=== PATIENT | male | born 1965 | race African-American/Black ===

== ENCOUNTER 2019-10-28 00:58 | Outpatient (CLI) | payer BC, SELFPAY ==
[2019-10-28 18:13] LABS: SARS-CoV-2 RNA PCR Negative
== END 2019-10-28 00:59 | disposition home or self-care (01) ==
LOC: ANHCOVIDDT 00:59
PROVIDERS: PCP Family Medicine; Visit Provider Internal Medicine Gastroenterology
DX: Z01.812 Encounter for preprocedural laboratory examination (principal); Z20.828 Contact with and (suspected) exposure to other viral communicable diseases
CPT/HCPCS: 87635; C9803; U0003

== ENCOUNTER 2019-10-31 00:44 | Day surgery (SDC) | payer BC, SELFPAY ==
[2019-10-23 10:58] VITALS: BMI 31.9
[2019-10-31 07:47] VITALS: BP 135/88; PULSE 48; RESP 18; TEMP 36.4; O2SAT 97
[2019-10-31] MEDS: LACTATED RINGERS 1,000 ML 150 ML IV CONT (08:05)
--- NOTE | 2019-10-31 08:27 | WPDANESEPPF ---
Anes - Initial Pre Proc Eval Procedure: Operation Date: 10/31/19 08:30 Proposed Procedures p Colonoscopy - Surya Greene MD Date/Time: 10/31/19 08:27 Surgeon: Surya Greene MD Pre Op Diagnosis: colon polyp, diarrhea Patient Data Age: 54 Gender: M Height: 1.93 m Weight: 126.8 kg Last Vital Signs Temp 36.4 C L 10/31/19 07:47 Pulse 48 L 10/31/19 07:47 Resp 18 10/31/19 07:47 BP 135/88 10/31/19 07:47 Pulse Ox 97 10/31/19 07:47 Allergies Allergy/AdvReac Type Severity Reaction Status Date / Time cephalexin Allergy Unknown Unknown Verified 10/31/19 07:46 Wtcqalz-Jzq-Ddz Reductase Allergy Unknown Unknown Verified 10/31/19 07:46 Inhibitor Home Medications Medication Instructions Recorded Confirmed Type omeprazole 20 mg tablet,delayed 20 mg PO DAILY #30 tablet 02/07/19 10/31/19 Rx release lisinopril 20 mg PO DAILY 02/16/19 10/31/19 History metoprolol succinate 200 mg PO BID 02/16/19 10/31/19 History Patient hx anesthesia problems: none Family hx anesthesia problems: none PMFSH Past Medical History Medical History (Updated 06/12/19 @ 11:10 by Surya Greene MD) Abnormal heart rhythms Adenomatous colon polyp Bleeding tendency COVID-19 virus infection Diarrhea Heart murmur Helicobacter positive gastritis Hypertension Mitral insufficiency Ulcers, marginal Surgical History Surgical History (System 06/06/19 @ 08:57 by Nicki Gar) Hx of tonsillectomy S/P MVR (mitral valve repair) Social History Social History (System 06/06/19 @ 08:57 by Nicki Gar) Years smoked: 6 Smoking status: Former smoker Tobacco type: cigarettes Alcohol intake: current Drinks per week: 1 Substance use type: does not use Living arrangements: alone Gender identity (if verbalized by the patient): Male Spiritual care concerns: No Anes - Eval Final PreProcedure Day of Procedure 10/31/19 08:27 Patient weight: obese Heart: regular rate and rhythm Lungs: clear to auscultation and normal air movement Airway: Mallampati scale class II Neurological: alert and oriented Last oral intake: >/= 8 hours ASA classification: III Emergent: no Anesthetic plan: proceed Anesthesia type and monitoring: general GIVS Informed Consent: The patient's anesthetic plan and its attendant risks and benefits were discussed with the patient/family/POA. Questions were solicited and answers provided to the satisfaction of the patient/family/POA.
--- NOTE | 2019-10-31 08:46 | PM.HPGS ---
History of Present Illness History of Present Illness Consent: Risks, benefits, and alternatives have been discussed and questions answered. Patient agrees to proceed with procedure. Chief complaint: colon polyp, diarrhea Narrative: Benjie Chavez is a 54 year old male large polyp removed about 6 months ago by piecemeal Review of Systems Constitutional: Constitutional: Denies headache(s) and Denies weakness Eyes: Eyes: Denies blurry vision ENT: Reports Normal hearing present, Denies headache(s) and Denies neck pain Cardiovascular: Cardiovascular: Denies chest pain and Denies dyspnea Respiratory: Respiratory: Denies dyspnea Gastrointestinal: Gastrointestinal: Reports no additional gastrointestinal complaints Genitourinary: Genitourinary: Denies dysuria Musculoskeletal: Musculoskeletal: Denies neck pain Integumentary/Breasts: Skin/Breast: Denies dry skin Neurologic: Reports Normal hearing present, Denies headache(s) and Denies weakness Psychiatric: Psychiatric: Denies anxiety Endocrine: Endocrine: Denies change in body appearance Hematologic/Lymphatic: Hematologic/Lymphatic: Denies easy bleeding Allergic/Immunologic: Allergic/Immunologic: Denies urticaria PMFSH Past Medical History Medical History (Updated 06/12/19 @ 11:10 by Surya Greene MD) Abnormal heart rhythms Adenomatous colon polyp Bleeding tendency COVID-19 virus infection Diarrhea Heart murmur Helicobacter positive gastritis Hypertension Mitral insufficiency Ulcers, marginal Surgical History Surgical History (System 06/06/19 @ 08:57 by Nicki Gar) Hx of tonsillectomy S/P MVR (mitral valve repair) Social History Social History (System 06/06/19 @ 08:57 by Nicki Gar) Years smoked: 6 Smoking status: Former smoker Tobacco type: cigarettes Alcohol intake: current Drinks per week: 1 Substance use type: does not use Living arrangements: alone Gender identity (if verbalized by the patient): Male Spiritual care concerns: No Meds Home Medications and Allergies Home Medications Medication Instructions Recorded Confirmed Type omeprazole 20 mg tablet,delayed 20 mg PO DAILY #30 tablet 02/07/19 10/31/19 Rx release lisinopril 20 mg PO DAILY 02/16/19 10/31/19 History metoprolol succinate 200 mg PO BID 02/16/19 10/31/19 History Allergies Allergy/AdvReac Type Severity Reaction Status Date / Time cephalexin Allergy Unknown Unknown Verified 10/31/19 07:46 Buuwrhk-Juo-Eqh Reductase Allergy Unknown Unknown Verified 10/31/19 07:46 Inhibitor Vital Signs Vital Signs - 24 hr 10/31/19 07:47 Temperature 97.5 F L Pulse Rate 48 L Respiratory Rate 18 Blood Pressure 135/88 Pulse Oximetry 97 Exam Const: General: comfortable and no acute distress HENMT: General nose exam: Normal nares present Eyes: General: appearance normal, both eyes and all related structures Neck: Neck: no JVD Resp: Auscultation: clear to auscultation bilaterally Cardio: Rate: regular rate Rhythm: regular rhythm GI: Inspection: non-distended GI Palp: Yes Soft to palpation Skin: General skin exam: normal color Neuro: General: gait normal Speech: normal speech Extrem: General: normal to inspection Psych: Mental Status: mental status grossly normal Assessment and Plan Assessment and plan (1) Adenomatous colon polyp: Qualifiers: Colon location: unspecified part of colon Qualified Code(s): D12.6 - Benign neoplasm of colon, unspecified Code(s): D12.6 - Benign neoplasm of colon, unspecified Status: Acute Assessment and Plan: will proceed with colonoscopy
[2019-10-31 09:19] VITALS: BP 109/67; PULSE 46; RESP 16; O2SAT 99
[2019-10-31 09:29] VITALS: BP 106/72; PULSE 45; RESP 14; O2SAT 100
[2019-10-31 09:39] VITALS: BP 112/74; PULSE 45; RESP 16; O2SAT 100
[2019-10-31 09:49] VITALS: BP 123/78; PULSE 42; RESP 16; O2SAT 98
== END 2019-10-31 09:59 | disposition home or self-care (01) ==
PROVIDERS: PCP Family Medicine; Visit Provider Internal Medicine Gastroenterology
PROC: 0DJD8ZZ Inspection of Lower Intestinal Tract, Via Natural or Artificial Opening Endoscopic (ICD-10-PCS; CPT 45378; principal; 2019-10-31 08:30)
DX: D12.2 Benign neoplasm of ascending colon (principal); I10 Essential (primary) hypertension; E66.9 Obesity, unspecified; Z68.34 Body mass index [BMI] 34.0-34.9, adult; Z86.19 Personal history of other infectious and parasitic diseases; Z87.891 Personal history of nicotine dependence; Z79.899 Other long term (current) drug therapy
CPT/HCPCS: 45380; 88305; J2704; J7120

== ENCOUNTER 2020-05-28 15:31 | Outpatient (CLI) | payer BC, SELFPAY ==
--- NOTE | ~2020-05-28 | XR_ITS ---
EXAMINATION:XR_[id number]_CR DATE: 05/28/2020 15:48 INDICATION: Cervicalgia, chronic neck pain TECHNIQUE: AP, lateral, and odontoid views of the cervical spine are provided. COMPARISON: 12/27/2008 FINDINGS: Alignment is normal. The odontoid is intact. No fracture is identified. There is mild loss of intervertebral disc space height throughout the cervical spine. The vertebral body heights are nor mal. Prevertebral soft tissues are normal. The odontoid is intact. Degenerative osteophytes project f rom the anterior endplates of multiple vertebral bodies. There is oncr-yb-smcftyiu multilevel facet a nd uncovertebral joint osteoarthritis. IMPRESSION: 1. Moderate cervical spondylosis without acute findings or significant interval change. Reviewed, dictated and finalized at location A.
== END 2020-05-28 15:32 | disposition home or self-care (01) ==
PROVIDERS: PCP Family Medicine; Visit Provider Physician Assistant Medical
DX: M47.892 Other spondylosis, cervical region (principal)
CPT/HCPCS: 72040

== ENCOUNTER 2021-04-07 18:26 | Observation (INO) | payer BC, SELFPAY ==
[2021-04-07] VITALS (20 sets, daily range): BP systolic 130–183; BP diastolic 74–143; PULSE 46–54; RESP 16–22; TEMP 36.4; O2SAT 97–100; BMI 35.8
--- NOTE | ~2021-04-07 | XR_ITS ---
EXAMINATION: XR chest 2V DATE: 04/07/2021 18:52 INDICATION: Left-sided chest pain TECHNIQUE: PA and lateral views of the chest were obtained. COMPARISON: Chest radiograph dated 05/10/2018 FINDINGS: The lungs are clear with no focal airspace opacities, pulmonary edema, pleural effusion or pneumothor ax. The cardiomediastinal silhouette is normal. Mitral valve repair. Unfused C7 spinous process. IMPRESSION: 1. No acute cardiopulmonary disease. Reviewed, dictated and finalized at location A. [employer]
--- NOTE | 2021-04-07 18:36 | ECG_ITS ---
Measurements Intervals [place] Rate: 49 P: 30 MD: 207 QRS: 11 QRSD: 127 T: 38 QT: 436 QTc: 394 Interpretive Statements SINUS BRADYCARDIA WITH FIRST DEGREE AV BLOCK INCOMPLETE RIGHT BUNDLE BRANCH BLOCK ABNORMAL ECG Electronically Signed On 04-08-2021 7:30:51 [employer] by Naresh Bellamy D.O.
--- NOTE | 2021-04-07 18:48 | ED.CHESTPAIN ---
HPI - Chest Pain General Chief Complaint: Chest Pain Stated Complaint: chest pain Time Seen by Provider: 04/07/21 18:47 Source: patient Mode of arrival: ambulatory Limitations: no limitations History of Present Illness HPI narrative: Patient is a 56-year-old male complaining of chest pain, left chest, tightness, 6 out of 10, nonradiating, intermittent started today. Patient denies any shortness breath, abdominal pain, diaphoresis, nausea, vomiting, fever or chills. Related Data Home Medications Medication Instructions Recorded Confirmed lisinopril 20 mg PO DAILY 02/16/19 06/17/20 metoprolol succinate 200 mg PO BID 02/16/19 06/17/20 hydrochlorothiazide 25 mg DAILY 04/07/21 omeprazole 20 mg DAILY 04/07/21 Allergies Allergy/AdvReac Type Severity Reaction Status Date / Time cephalexin Allergy Unknown Unknown Verified 06/17/20 09:31 Nbxsggy-ZPE-TxD Reductase Allergy Unknown Unknown Verified 06/17/20 09:31 Inhibitor [Cnkgvjd-Gxj-Pww Reductase Inhibitor] Sulfa (Sulfonamide Allergy Rash Verified 04/07/21 18:57 Antibiotics) Review of Systems Review of Systems: All systems reviewed & are unremarkable except as noted in HPI and below Constitutional: Constitutional: Denies body ache(s), Denies chills, Denies excessive sweating, Denies fatigue, Denies fever(s), Denies headache(s), Denies lethargy, Denies malaise, Denies weakness and Denies weight loss Eyes: Eyes: Denies blurry vision, Denies change in vision and Denies loss of vision ENT: Denies dizziness, Denies ear discharge, Denies headache(s), Denies lip swelling, Denies epistaxis, Denies nasal congestion, Denies neck pain, Denies throat swelling and Denies tongue swelling Cardiovascular: Cardiovascular: Denies diaphoresis, Denies rapid heart rate, Denies edema, Denies irregular heart rhythm, Denies lightheadedness, Denies palpitations, Denies dyspnea and Denies dyspnea on exertion Respiratory: Respiratory: Denies chest congestion, Denies cough, Denies hemoptysis, Denies dyspnea and Denies dyspnea on exertion Gastrointestinal: Gastrointestinal: Denies abdominal pain, Denies melena, Denies hematochezia, Denies diarrhea, Denies nausea, Denies vomiting and Denies hematemesis Musculoskeletal: Musculoskeletal: Denies abnormal gait, Denies deformity, Denies joint swelling, Denies limited range of motion, Denies neck pain and Denies numbness Neurologic: Denies Abnormal speech present, Denies abnormal gait, Denies confusion, Denies dizziness, Denies headache(s), Denies focal weakness, Denies loss of vision, Denies numbness, Denies Other visual disturbances, Denies Sensory deficit (Neuro) and Denies weakness Psychiatric: Psychiatric: Denies confusion, Denies depression, Denies auditory hallucinations, Denies homicidal ideation and Denies suicidal ideation Endocrine: Endocrine: Denies cold intolerance, Denies excessive sweating, Denies fatigue, Denies heat intolerance and Denies palpitations Hematologic/Lymphatic: Hematologic/Lymphatic: Denies easy bleeding and Denies easy bruising Allergic/Immunologic: Allergic/Immunologic: Denies lip swelling, Denies throat swelling and Denies tongue swelling PMFSH Past Medical History Medical History Abnormal heart rhythms Adenomatous colon polyp Bleeding tendency BMI 33.0-33.9,adult BMI 34.0-34.9,adult COVID-19 virus infection Diarrhea Heart murmur Helicobacter positive gastritis Hypertension Mitral insufficiency Ulcers, marginal Surgical History Surgical History Hx of tonsillectomy S/P MVR (mitral valve repair) Family History Family History Father Malignant neoplasm of prostate Mother Heart disease Liver disease Other Diabetes mellitus Family history of coronary artery disease Hypertension Social History Social H
[2021-04-07 18:56] LABS: Basophils Percent Auto 0.7 % (0.2-1.2); Eosinophils Absolute Auto 0.3 K/mm3 (0-0.3); Eosinophils Percent Auto 4.6 % (0-4.4); Hematocrit 45.9 % (42.0-52.0); Hemoglobin 15.3 g/dL (14.0-18.0); Immature Granulocyte Absolute 0.01 K/mm3 (0.00-0.031); Immature Granulocyte Percent A 0.2 % (0-0.5); Immature Platelet Fraction Pct 3.5 % (0.9-11.2); Lymphocytes Absolute Auto 2.57 K/mm3 (0.9-3.2); Lymphocytes Percent Auto 41.9 % (18.3-44.2); Mean Corpuscular HGB Conc 33.3 g/dl (32-36); Mean Corpuscular Hemoglobin 30.7 pg (26-34); Monocytes Absolute Auto 0.5 K/mm3 (0.1-0.6); Monocytes Percent Auto 7.5 % (2.6-8.5); Neutrophils Absolute Auto 2.8 K/mm3 (1.3-6.7); Neutrophils Percent Auto 45.1 % (45.5-73.1); Platelet Count Result 149 k/mm3 (150-375); Red Blood Count 4.99 M/mm3 (4.6-6.20); Red Cell Distribution Width 13.5 % (11.5-14.5); White Blood Count 6.1 K/mm3 (4.5-10.0)
[2021-04-07 19:01] LABS: Prothrombin Time 12.7 Seconds (11.1-14.7)
[2021-04-07 19:02] LABS: Partial Thromboplastin Time 28.8 SECONDS (22.3-36.8)
[2021-04-07] MEDS: ASPIRIN 81 MG CHEWABLE TABLET 324 MG PO (19:08)
[2021-04-07 19:14] LABS: Alanine Aminotransferase 25 U/L (4-50); Albumin Level 4.2 g/dL (3.5-5.1); Alkaline Phosphatase 50 U/L (38-126); Anion Gap 5 mmol/L (8-16); Aspartate Amino Transferase 25 U/L (17-59); Bilirubin,Total 0.5 mg/dL (0.2-1.3); Blood Urea Nitrogen 13 mg/dL (9-20); Calcium 8.8 mg/dL (8.4-10.2); Carbon Dioxide 26 mmol/L (22-30); Chloride 103 mmol/L (98-107); Estimated CRCL calculation 83 ml/min; Estimated Glomerular Filt Rate > 60; Glucose 115 mg/dL (65-110); Lipase 187 U/L (23-300); Potassium 3.6 mmol/L (3.4-5.0); Sodium 134 mmol/L (137-145)
[2021-04-07 19:26] LABS: Troponin I < 0.012 ng/mL (0.000-0.034)
[2021-04-07 22:02] LABS: Troponin I < 0.012 ng/mL (0.000-0.034)
[2021-04-08] VITALS: BP 113/68; PULSE 46; RESP 20; TEMP 36.2; O2SAT 96
--- NOTE | 2021-04-08 00:31 | ADMGEN ---
This patient, Benjie Chavez, was admitted to [facility] 04/07/2021 @2300. Patient/family oriented to hospital policies and general routines including ID bracelet, bed and alarms, visiting hours, pain management, procedures, bathroom and other care routines, personal items, smoking policy, room service/diet, and visiting hours. Information on how to activate the Rapid Response Team has been discussed. Patient/Family are encouraged to report perceived risks to care and to ask questions if they do not understand what they are told or what they should do.
--- NOTE | 2021-04-08 01:06 | PM.IMHP ---
H&P: HPI History of Present Illness Date/Time: 04/07/21 23:30 Chief Complaint: Chest pain Narrative: Pleasant 56-year-old male with past medical history of cardiomyopathy with systolic heart failure EF of 30%, mitral valve regurgitation status post valve repair in 2016 who presented to the ER with chest pain. He reported that he was getting ready for work when he started having left-sided chest pain that radiated down into the substernal region. Pain was a 6/10 in intensity and was described as tight in nature. The pain only lasted a few minutes before resolved. 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 That time the chest pain lasted between 5-20 minutes. He did not have any eliciting or relieving factors. He did not have any palpitations, diaphoresis, nausea or lightheadedness. He had his nursing district supervisor evaluate him and they recommended he come to the ER. He does report chronic shortness of breath with vigorous activity due to his chronic nonischemic cardiomyopathy. He occasionally has some trace edema of his ankles but does not note this at this time. He denies any orthopnea or paroxysmal nocturnal dyspnea. 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 He does snore. He had a sleep study over 10 years ago that did not demonstrate any sleep apnea but has not had any recent evaluation. He has not had any cough or congestion. He has an appointment with his needle loom operator at [facility] in 2 days. Review of Systems Review of Systems: 12 systems were reviewed with pertinent positives and negatives per HPI. Except as documented in the HPI, all other systems were reviewed and are negative. [facility] Past Medical History Medical History (Updated 04/08/21 @ 01:10 by Traci Hinson DO) Abnormal heart rhythms Adenomatous colon polyp Bleeding tendency BMI 34.0-34.9,adult Cataracts, bilateral COVID-19 virus infection Diarrhea Heart murmur Helicobacter positive gastritis Hypertension Mitral insufficiency Ulcers, marginal (~2019) Surgical History Surgical History (Updated 04/08/21 @ 01:51 by Traci Hinson DO) Hx of tonsillectomy At 30 years old S/P MVR (mitral valve repair) Family History Family History (Updated 04/08/21 @ 01:53 by Traci Hinson DO) Father , At 80 years old Malignant neoplasm of prostate Hypertension Mother Heart disease Liver disease Diabetes mellitus Hypertension Social History Social History (Updated 04/08/21 @ 01:54 by Traci Hinson DO) Social History: 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 He drinks 2-3 alcoholic beverages a week. He denies any illicit substance use. He briefly smoked many years ago. Years smoked: 6 Smoking status: Former smoker Tobacco type: cigarettes Second hand tobacco smoke exposure: Yes Alcohol intake: current Drinks per week: 3 Substance use: never Substance use type: does not use Gender identity (if verbalized by the patient): Male Spiritual care concerns: No Meds Home Medications and Allergies Home Medications Medication Instructions Recorded Confirmed Type lisinopril 20 mg PO DAILY 02/16/19 04/08/21 History metoprolol succinate 100 mg PO BID 02/16/19 04/08/21 History meloxicam 15 mg tablet 15 mg PO DAILY #30 tablet 10/16/20 04/08/21 Rx hydrochlorothiazide 25 mg DAILY 04/07/21 04/08/21 History omeprazole 20 mg DAILY 04/07/21 04/08/21 History ezetimibe 10 mg PO DAILY 04/08/21 04/08/21 History Allergies Allergy/AdvReac Type Severity Reaction Status Date / Time cephalexin Allergy Unknown Unknown Verified 06/17/20 09:31 Iiiwhox-GNT-QqM Reductase Allergy Unknown Unknown Verified 06/17/20 09:31 Inhibitor [Oxmmzod-Vux-Lxb Reductase Inhibitor] Sulfa (Sulfonamide Allergy Rash Verified 04/07/21 18:57 Antibiotics)
[2021-04-08 01:38] LABS: Troponin I < 0.012 ng/mL (0.000-0.034)
[2021-04-08 02:00] VITALS: PULSE 54
[2021-04-08 04:00] VITALS: BP 112/60; PULSE 52; RESP 17; TEMP 36.7; O2SAT 96
[2021-04-08 06:00] VITALS: PULSE 55
[2021-04-08 08:00] VITALS: BP 137/87; PULSE 51; RESP 17; TEMP 36.4; O2SAT 95
[2021-04-08] MEDS: MELOXICAM 7.5 MG TABLET 15 MG PO (09:27)
[2021-04-08] MEDS: PANTOPRAZOLE 40 MG TABLET PO (09:27)
[2021-04-08] MEDS: EZETIMIBE 10 MG TABLET PO (09:27)
[2021-04-08] MEDS: hydroCHLOROthiazide 25 MG TABLET PO (09:28)
[2021-04-08] MEDS: lisinopriL 20 MG TABLET PO (09:28)
[2021-04-08 10:00] VITALS: PULSE 57
--- NOTE | 2021-04-08 11:33 | PM.CNCAR ---
Assessment and Plan Assessment and plan (1) Chest pain: Qualifiers: Chest pain type: unspecified Qualified Code(s): R07.9 - Chest pain, unspecified Code(s): R07.9 - Chest pain, unspecified Status: Acute Assessment and Plan: Atypical, intermittent, self-resolving chest pain ruled out for myocardial infarction with negative serial cardiac enzymes. EKG without acute ischemic changes. History of normal coronary anatomy by left heart catheterization 02/15/2017 at [facility]. Very unlikely patient has developed severe obstructive CAD as contribution to atypical chest pain symptoms. No clinical evidence of acute pericarditis is contribution. BP control, patient is not in decompensated heart failure. Symptoms most likely musculoskeletal as they occurred while picking up a heavy television sharp in nature lasting several minutes at a time. I do not feel noninvasive ischemic evaluation is warranted at this time. Furthermore, he will follow-up with Dr. Hammond (Cardiology) at [facility] tomorrow and has been advised to keep this appointment. He agrees. No changes medical therapy at this time. However, given his resting bradycardia despite holding beta-jaiden last night and this morning and discussed the down titration as tolerated but will defer to his primary outpatient scheduler. Patient stable for discharge home follow up as an outpatient. Disposition per hospitalist service. Patient given the opportunity to ask any and all questions which were answered to his satisfaction. Patient agrees with plan of care. (2) Essential (primary) hypertension: Code(s): I10 - Essential (primary) hypertension Status: Acute Assessment and Plan: BP reasonably controlled. Continue home cardiovascular medical therapy. Continue lisinopril, hydrochlorothiazide, and metoprolol succinate. (3) History of cardiomyopathy: Code(s): Z86.79 - Personal history of other diseases of the circulatory system Status: Acute Assessment and Plan: EF 65-70% by most recent echocardiogram 05/2020. Patient is not in decompensated heart failure, NYHA class I-II sxs. (4) Mixed hyperlipidemia: Code(s): E78.2 - Mixed hyperlipidemia Status: Acute Assessment and Plan: Intolerant to statins. Continue Zetia. (5) Status post mitral valve annuloplasty: Code(s): Z98.890 - Other specified postprocedural states Status: Acute Assessment and Plan: Prophylactic antibiotics. Exam is not suggestive significant dysfunction. Patient has appointment with his normal outpatient scheduler tomorrow and will keep this scheduled appointment. He is not currently taking aspirin. History of Present Illness History of Present Illness Consult date/time: Date of service: 04/08/21 11:33 Cardiology consultation at the request of Dr. Moraes for our opinion regarding chest pain. Requesting physician: Beatriz Moraes MD Consult reason: chest pain Reason For Visit: Chest Pain, Sinus Bradycardia Narrative: Patient is a very pleasant 56-year-old male with past medical history significant for nonischemic cardiomyopathy with normal coronary anatomy by left heart catheterization 02/15/2017 and was a [facility], status post mitral valve annuloplasty ring, normalized LV systolic function EF 65-70% by echocardiogram 05/2020, hypertension with moderate LVH, mixed dyslipidemia intolerant to statin therapy who was in his usual state of health when he states he was with his mother with a heavy television when he developed sharp left-sided chest pain without radiation or other associated symptoms. He denies nausea, shortness of breath, diaphoresis, palpitations, near-syncope or syncope. Symptoms would persist for 3-5 minutes then resolved and recurred 2 or 3 times. 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 He presented to the ER here at [facility]. He has been
--- NOTE | 2021-04-08 12:11 | PM.DS ---
DS: Admitting Diagnosis Discharge Date 04/08/2021 Admitting Diagnosis chest pain DS: Discharge Diagnosis Discharge Diagnosis (1) Chest pain: Qualifiers: Chest pain type: unspecified Qualified Code(s): R07.9 - Chest pain, unspecified Code(s): R07.9 - Chest pain, unspecified Status: Acute (2) Bradycardia, sinus: Code(s): R00.1 - Bradycardia, unspecified Status: Acute (3) S/P MVR (mitral valve repair): Code(s): Z98.890 - Other specified postprocedural states Status: Acute DS: Summary Hospital Course Reason for hospitalization: Chief Complaint: Chest pain Narrative: Pleasant 56-year-old male with past medical history of cardiomyopathy with systolic heart failure EF of 30%, mitral valve regurgitation status post valve repair in 2016 who presented to the ER with chest pain. He reported that he was getting ready for work when he started having left-sided chest pain that radiated down into the substernal region. Pain was a 6/10 in intensity and was described as tight in nature. The pain only lasted a few minutes before resolved. 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 That time the chest pain lasted between 5-20 minutes. He did not have any eliciting or relieving factors. He did not have any palpitations, diaphoresis, nausea or lightheadedness. He had his nursing research greenhouse supervisor evaluate him and they recommended he come to the ER. He does report chronic shortness of breath with vigorous activity due to his chronic nonischemic cardiomyopathy. He occasionally has some trace edema of his ankles but does not note this at this time. He denies any orthopnea or paroxysmal nocturnal dyspnea. 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 He does snore. He had a sleep study over 10 years ago that did not demonstrate any sleep apnea but has not had any recent evaluation. He has not had any cough or congestion. Hospital Course: Patient presented with a complaint of chest pain, 3 sets of cardiac enzymes are negative myocardial infarction is ruled out, though no acute changes on EKG, seen by climate change analyst does not suspect acute coronary syndrome, patient has a appointment with his regular climate change analyst in 2 days will discharge the patient today. Status at Discharge Functional status at discharge: independent ambulation Overall status at discharge: patient is back to baseline Time Spent with Patient Time attestation: Total time spent providing and/or coordinating discharge services: Time spent: Greater than 30 minutes Exam Narrative: Patient is comfortable, NAD HEENT: eyes are clear and none icteric LUNGS:CTA HEART: RR S1S2 ABD: BS+, Soft and nontender Lower extremities: no edema SKIN: nonjaundiced Neuro: grossly intact. DS: Data Data Completed and Pending Labs on day of discharge: Labs from last 24 hours 04/08/21 04/07/21 04/07/21 00:29 21:28 18:45 WBC RBC Hgb Hct MCV MCH MCHC RDW Plt Count MPV Immature Gran % (Auto) Neut % (Auto) Lymph % (Auto) [place] % (Auto) Eos % (Auto) Baso % (Auto) Lymph # (Auto) [place] # (Auto) Eos # (Auto) Baso # (Auto) Abs Immat Gran (auto) Absolute Neuts (auto) Absolute Nucleated RBC Nucleated RBC % % Immature Plt Fraction PT INR APTT Sodium 134 L Potassium 3.6 Chloride 103 Carbon Dioxide 26 Anion Gap 5 L BUN 13 Creatinine 1.30 Estim Creat Clear Calc 83 Estimated GFR > 60 Glucose 115 H Calcium 8.8 Total Bilirubin 0.5 AST 25 ALT 25 Alkaline Phosphatase 50 Troponin I < 0.012 < 0.012 < 0.012 Total Protein 7.0 Albumin 4.2 Lipase 187 04/07/21 04/07/21 18:45 18:45 WBC 6.1 RBC 4.99 Hgb 15.3 Hct 45.9 MCV 92.0 MCH 30.7 MCHC 33.3 RDW 13.5 Plt Count 149 L MPV 10.0 Immature Gran % (
== END 2021-04-08 13:24 | disposition home or self-care (01) ==
LOC: ANHED 20:43 → ANHCPC 04-08 12:11
PROVIDERS: Emergency Medicine; Admitting Provider Internal Medicine; Emergency Provider Emergency Medicine; PCP Family Medicine; Visit Provider Family Medicine
DX: R07.89 Other chest pain (principal); I11.0 Hypertensive heart disease with heart failure; I50.20 Unspecified systolic (congestive) heart failure; I42.8 Other cardiomyopathies; R00.1 Bradycardia, unspecified; R06.83 Snoring; R06.02 Shortness of breath; E78.2 Mixed hyperlipidemia; Z87.891 Personal history of nicotine dependence; Z95.4 Presence of other heart-valve replacement
CPT/HCPCS: 36415; 71046; 80053; 83690; 84484; 85025; 85055; 85610; 85730; 93005; 99285; A9270; G0378

== ENCOUNTER 2021-09-16 11:45 | Outpatient (CLI) | payer BC, SELFPAY ==
[2021-09-16 12:37] LABS: Hematocrit 44.8 % (42.0-52.0); Hemoglobin 14.5 g/dL (14.0-18.0); Immature Platelet Fraction Pct 3.6 % (0.9-11.2); Mean Corpuscular HGB Conc 32.4 g/dl (32-36); Mean Corpuscular Volume 92.6 fl (80-100); Mean Platelet Volume 9.6 fl (7.4-10.4); Platelet Count Result 161 k/mm3 (150-375); Red Blood Count 4.84 M/mm3 (4.6-6.20); Red Cell Distribution Width 13.7 % (11.5-14.5); White Blood Count 5.8 K/mm3 (4.5-10.0)
[2021-09-16 12:50] LABS: Alanine Aminotransferase 29 U/L (6-50); Albumin Level 4.4 g/dL (3.5-5.1); Alkaline Phosphatase 49 U/L (38-126); Anion Gap 6 mmol/L (8-16); Aspartate Amino Transferase 23 U/L (17-59); Bilirubin,Total 0.4 mg/dL (0.2-1.3); Blood Urea Nitrogen 13 mg/dL (9-20); Calcium 9.2 mg/dL (8.4-10.2); Carbon Dioxide 33 mmol/L (22-30); Chloride 100 mmol/L (98-107); Estimated Glomerular Filt Rate > 60; Glucose 78 mg/dL (65-110); Potassium 3.6 mmol/L (3.4-5.0); Sodium 139 mmol/L (137-145)
[2021-09-16 13:19] LABS: Prostate Specific Antigen 0.8 ng/mL (< OR = 4.0)
== END 2021-09-16 11:46 | disposition home or self-care (01) ==
LOC: ANHLAB 11:47
PROVIDERS: PCP Family Medicine; Visit Provider Nurse Practitioner Family
DX: E87.1 Hypo-osmolality and hyponatremia (principal); N28.9 Disorder of kidney and ureter, unspecified; I10 Essential (primary) hypertension; Z12.5 Encounter for screening for malignant neoplasm of prostate
CPT/HCPCS: 36415; 80053; 84153; 85027; 85055; G0103

== ENCOUNTER 2022-09-17 16:21 | Emergency (ER) | payer BC, SELFPAY ==
--- NOTE | ~2022-09-17 | XR_ITS ---
XR finger 2nd RT min 2V 09/17/2022 18:12 INDICATION: Right second finger pain after trauma PROCEDURE: 3 views right second finger COMPARISON: 03/27/2013 FINDINGS: Fracture, dislocation or subluxation is not identified. 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 The soft tissues appear within normal limits. No foreign bodies are identified. IMPRESSION: 1: NO ACUTE BONE OR JOINT ABNORMALITY IDENTIFIED. Reviewed, dictated and finalized at location A.
[2022-09-17 16:22] VITALS: BP 106/83; PULSE 55; RESP 18; TEMP 36.9; O2SAT 97
--- NOTE | 2022-09-17 18:02 | ED.SKABFB ---
HPI - Skin/Abscess/Foreign Bdy General Chief complaint: Skin/Abscess/Foreign Body Stated complaint: rash/finger lac Time Seen by Provider: 09/17/22 17:09 Source: patient Mode of arrival: ambulatory Limitations: no limitations History of Present Illness HPI narrative: This is a 57 year old male that presents to the ER for an injury to his right 2nd finger sustained just prior to arrival. Reports he accidentally closed his finger in a door. He reports swelling and pain in the area. Reports a laceration to the distal phalanx. Also reports he has had a rash on his left forearm over the last week. Reports it is itchy. Is wondering if it is maybe poison mary as he had a recent exposure. Denies fever, decreased ROM or numbness. Related Data Home Medications Medication Instructions Recorded Confirmed hydrochlorothiazide 25 mg tablet 25 mg DAILY 04/07/21 09/29/21 Allergies Allergy/AdvReac Type Severity Reaction Status Date / Time cephalexin Allergy Unknown Unknown Verified 07/06/22 09:57 Zvjfcci-OGD-UxR Reductase Allergy Unknown Unknown Verified 07/06/22 09:57 Inhibitor [Ambquvn-Jiw-Vyc Reductase Inhibitor] Sulfa (Sulfonamide Allergy Rash Verified 07/06/22 09:57 Antibiotics) Review of Systems Review of Systems: CONSTITUTIONAL: Denies fever, SKIN: Reports rash and itching. MUSCULOSKELETAL: Reports joint pain, and myalgia. NEUROLOGIC: Denies numbness, or weakness. All systems reviewed & are unremarkable except as noted in HPI and below PMFSH Past Medical History Medical History Abnormal heart rhythms Adenomatous colon polyp Bleeding tendency BMI 32.0-32.9,adult BMI 34.0-34.9,adult Cataracts, bilateral COVID-19 virus infection Diarrhea Heart murmur Helicobacter positive gastritis Hypertension Mitral insufficiency Ulcers, marginal (~2019) Surgical History Surgical History Hx of tonsillectomy At 30 years old S/P MVR (mitral valve repair) Family History Family History Father , At 80 years old Malignant neoplasm of prostate Hypertension Mother Heart disease Liver disease Diabetes mellitus Hypertension Social History Social History Social History: 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 He drinks 2-3 alcoholic beverages a week. He denies any illicit substance use. He briefly smoked many years ago. Years smoked: 6 Smoking status: Former smoker Tobacco type: cigarettes Second hand tobacco smoke exposure: Yes Alcohol intake: current Drinks per week: 3 Substance use: never Substance use type: does not use Living arrangements: alone Gender identity (if verbalized by the patient): Male Spiritual care concerns: No Exam Narrative: GENERAL: Well-appearing, well-nourished, and in no acute distress. HEAD: Normocephalic, atraumatic. EYES: EOMI. EXTREMITIES: Normal range of motion. No obvious deformity. 1cm linear superficial laceration to the right 2nd finger distal phalanx SKIN: Warm, dry. Scattered papules to the left forearm NEURO: No focal deficits. Alert and oriented x3. PSYCH: Normal mood and affect Course Course Emergency Course: Patient updated on workup and agrees with plan and can Vital Signs Vital signs: Vital Signs Temperature 98.4 F 09/17/22 16:22 Pulse Rate 55 L 09/17/22 16:22 Respiratory Rate 18 09/17/22 16:22 Blood Pressure 106/83 09/17/22 16:22 Pulse Oximetry 97 09/17/22 16:22 Oxygen Delivery Room Air 09/17/22 16:22 Temperature 98.4 F 09/17/22 16:22 Pulse Rate 55 L 09/17/22 16:22 Respiratory Rate 18 09/17/22 16:22 Blood Pressure 106/83 09/17/22 16:22 Pulse Oximetry 97 09/17/22 16:22 Oxygen Delivery Room Air
[2022-09-17] MEDS: TETANUS,DIPHTHERIA,AC PERTUSSIS ADULT (0.5 ML) BOOSTRIX IM (19:12)
[2022-09-17 19:19] VITALS: BP 112/68; PULSE 60; O2SAT 99
== END 2022-09-17 19:19 | disposition home or self-care (01) ==
PROVIDERS: Emergency Provider Physician Assistant; PCP Family Medicine
DX: S67.190A Crushing injury of right index finger, initial encounter (principal); S61.210A Laceration without foreign body of right index finger without damage to nail, initial encounter; R21 Rash and other nonspecific skin eruption; Z23 Encounter for immunization; I10 Essential (primary) hypertension; I34.0 Nonrheumatic mitral (valve) insufficiency; H26.9 Unspecified cataract; Z86.010 Personal history of colon polyps; Z86.16 Personal history of COVID-19; Z87.891 Personal history of nicotine dependence; W23.0XXA Caught, crushed, jammed, or pinched between moving objects, initial encounter
CPT/HCPCS: 12001; 73140; 90471; 90715; 99283

== ENCOUNTER 2022-11-03 09:07 | Outpatient (CLI) | payer BC, SELFPAY ==
[2022-11-03 10:21] LABS: Hematocrit 45.5 % (42.0-52.0); Hemoglobin 14.8 g/dL (14.0-18.0); Mean Corpuscular HGB Conc 32.5 g/dl (32-36); Mean Corpuscular Hemoglobin 29.7 pg (26-34); Mean Corpuscular Volume 91.4 fl (80-100); Mean Platelet Volume 9.8 fl (7.4-10.4); Platelet Count Result 150 k/mm3 (150-375); Red Blood Count 4.98 M/mm3 (4.6-6.20); Red Cell Distribution Width 13.8 % (11.5-14.5); White Blood Count 6.2 K/mm3 (4.5-10.0)
[2022-11-03 10:35] LABS: Alanine Aminotransferase 26 U/L (6-50); Albumin Level 4.5 g/dL (3.5-5.1); Alkaline Phosphatase 51 U/L (38-126); Anion Gap 6 mmol/L (8-16); Aspartate Amino Transferase 25 U/L (17-59); Bilirubin,Total 0.6 mg/dL (0.2-1.3); Blood Urea Nitrogen 14 mg/dL (9-20); Carbon Dioxide 31 mmol/L (22-30); Chloride 98 mmol/L (98-107); Cholesterol 190 mg/dL (0-200); Estimated Glomerular Filt Rate > 60; Glucose 111 mg/dL (65-110); HDL Direct 35 mg/dL; Potassium 3.9 mmol/L (3.4-5.0); Sodium 135 mmol/L (137-145); Triglycerides 274 mg/dL (<150)
[2022-11-03 10:46] LABS: LDL Cholesterol Direct 103 mg/dL
[2022-11-03 11:03] LABS: Prostate Specific Antigen 0.7 ng/mL (< OR = 4.0)
[2022-11-03 14:22] LABS: Hemoglobin A1C 5.8 % (<5.7)
== END 2022-11-03 09:08 | disposition home or self-care (01) ==
PROVIDERS: PCP Family Medicine; Visit Provider Nurse Practitioner Family
DX: E78.2 Mixed hyperlipidemia (principal); Z13.29 Encounter for screening for other suspected endocrine disorder; E34.9 Endocrine disorder, unspecified; Z12.5 Encounter for screening for malignant neoplasm of prostate; R73.09 Other abnormal glucose
CPT/HCPCS: 36415; 80053; 80061; 83036; 84153; 84443; 85027; G0103

== ENCOUNTER 2022-12-18 02:04 | Day surgery (SDC) | payer BC, SELFPAY ==
[2022-12-09 14:39] VITALS: BMI 34.9
[2022-12-18 13:09] VITALS: BP 119/65; PULSE 52; RESP 18; TEMP 35.8; O2SAT 99
[2022-12-18] MEDS: LACTATED RINGERS 1,000 ML 150 ML IV CONT (13:25)
--- NOTE | 2022-12-18 13:44 | WPDANESEPPF ---
Anes - Initial Pre Proc Eval Procedure: Operation Date: 12/18/22 13:45 Proposed Procedures p Colonoscopy - Surya Greene MD Date/Time: 12/18/22 13:44 Surgeon: Surya Greene MD Pre Op Diagnosis: hx colon polyps Patient Data Age: 57 Gender: M Height: 1.91 m Weight: 121.7 kg Last Vital Signs Temp 96.5 F L 12/18/22 13:09 Pulse 52 L 12/18/22 13:09 Resp 18 12/18/22 13:09 BP 119/65 12/18/22 13:09 Pulse Ox 99 12/18/22 13:09 O2 Del Method Room Air 12/18/22 13:09 Allergies Allergy/AdvReac Type Severity Reaction Status Date / Time cephalexin Allergy Unknown Unknown Verified 12/18/22 13:06 Netxjlx-LQV-DtW Reductase Allergy Unknown Unknown Verified 12/18/22 13:06 Inhibitor [Onnyglb-Man-Cax Reductase Inhibitor] Sulfa (Sulfonamide Allergy Rash Verified 12/18/22 13:06 Antibiotics) Home Medications Medication Instructions Recorded Confirmed Type hydrochlorothiazide 25 mg tablet 25 mg PO DAILY 04/07/21 12/18/22 History gabapentin 300 mg capsule 300 mg PO TID #270 caps 09/19/22 12/18/22 Rx ashwagandha extract 120 mg capsule 120 mg PO DAILY 11/03/22 12/18/22 History methocarbamol 500 mg tablet 500 mg PO TID PRN muscle spasm #60 11/03/22 12/18/22 Rx tabs omega-3 fatty acids 1,000 mg 1,000 mg PO DAILY 11/03/22 12/18/22 History capsule psyllium husk 0.52 gram capsule 0.52 g PO DAILY 11/03/22 12/18/22 History saffron extract 176.5 mg tablet 176.5 mg PO DAILY 11/03/22 12/18/22 History omeprazole 20 mg capsule,delayed See Rx Instructions .Route 11/11/22 12/18/22 Rx release .COMPLEX #90 caps amlodipine 5 mg tablet See Rx Instructions .Route 11/12/22 12/18/22 Rx .COMPLEX #90 tabs ezetimibe 10 mg tablet See Rx Instructions .Route 11/15/22 12/18/22 Rx .COMPLEX #90 tabs meloxicam 15 mg tablet 15 mg PO DAILY #30 tabs 11/15/22 12/18/22 Rx lisinopril 40 mg tablet 40 mg PO DAILY 12/09/22 12/18/22 History metoprolol succinate 200 mg 200 mg PO BID 12/09/22 12/18/22 History tablet,extended release 24 hr Patient hx anesthesia problems: none Family hx anesthesia problems: none Results Review: All pre-operative results and documents have been reviewed as part of the pre-operative evaluation. [facility] Past Medical History Medical History (Updated 11/03/22 @ 15:06 by JESSI Alvarez) Abnormal heart rhythms Adenomatous colon polyp Bleeding tendency BMI 32.0-32.9,adult BMI 34.0-34.9,adult Cataracts, bilateral Cervical myelopathy COVID COVID-19 virus infection Diarrhea Heart murmur Helicobacter positive gastritis Hypertension Mitral insufficiency Ulcers, marginal (~2019) Surgical History Surgical History Hx of tonsillectomy At 30 years old S/P MVR (mitral valve repair) Family History Family History Father , At 80 years old Malignant neoplasm of prostate Hypertension Mother Heart disease Liver disease Diabetes mellitus Hypertension Social History Social History Social History: 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 He drinks 2-3 alcoholic beverages a week. He denies any illicit substance use. He briefly smoked many years ago. Years smoked: 10 Smoking status: Former smoker Tobacco type: cigarettes Second hand tobacco smoke exposure: Yes Alcohol intake: current Drinks per week: 3 Substance use: never Substance use type: does not use Lack of Transportation: No Lack of Food: Sometimes True Current Housing: I Have Housing Concerned About Future Housing: No Difficulty Paying Gas/Electric Bills: No Difficulty Paying for Meds: No Currently Unemployed: No Education: Bachelor's Degree Difficulty w/ Childcare or Family Care: YES Living arrange
--- NOTE | 2022-12-18 13:50 | PM.HPGS ---
History of Present Illness History of Present Illness Consent: Risks, benefits, and alternatives have been discussed and questions answered. Patient agrees to proceed with procedure. Chief complaint: hx colon polyps Narrative: Benjie Chavez is a 57 year old male with colon polyps in 2019 Review of Systems Constitutional: Constitutional: Denies headache(s) and Denies weakness Eyes: Eyes: Denies blurry vision ENT: Reports Normal hearing present, Denies headache(s) and Denies neck pain Cardiovascular: Cardiovascular: Denies chest pain and Denies dyspnea Respiratory: Respiratory: Denies dyspnea Gastrointestinal: Gastrointestinal: Reports no additional gastrointestinal complaints Genitourinary: Genitourinary: Denies dysuria Musculoskeletal: Musculoskeletal: Denies neck pain Integumentary/Breasts: Skin/Breast: Denies dry skin Neurologic: Reports Normal hearing present, Denies headache(s) and Denies weakness Psychiatric: Psychiatric: Denies anxiety Endocrine: Endocrine: Denies change in body appearance Hematologic/Lymphatic: Hematologic/Lymphatic: Denies easy bleeding Allergic/Immunologic: Allergic/Immunologic: Denies urticaria PMF Past Medical History Medical History (Updated 11/03/22 @ 15:06 by SHARONA AlvarezP) Abnormal heart rhythms Adenomatous colon polyp Bleeding tendency BMI 32.0-32.9,adult BMI 34.0-34.9,adult Cataracts, bilateral Cervical myelopathy COVID COVID-19 virus infection Diarrhea Heart murmur Helicobacter positive gastritis Hypertension Mitral insufficiency Ulcers, marginal (~2019) Surgical History Surgical History Hx of tonsillectomy At 30 years old S/P MVR (mitral valve repair) Family History Family History Father , At 80 years old Malignant neoplasm of prostate Hypertension Mother Heart disease Liver disease Diabetes mellitus Hypertension Social History Social History Social History: 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 He drinks 2-3 alcoholic beverages a week. He denies any illicit substance use. He briefly smoked many years ago. Years smoked: 10 Smoking status: Former smoker Tobacco type: cigarettes Second hand tobacco smoke exposure: Yes Alcohol intake: current Drinks per week: 3 Substance use: never Substance use type: does not use Lack of Transportation: No Lack of Food: Sometimes True Current Housing: I Have Housing Concerned About Future Housing: No Difficulty Paying Gas/Electric Bills: No Difficulty Paying for Meds: No Currently Unemployed: No Education: Bachelor's Degree Difficulty w/ Childcare or Family Care: YES Living arrangements: with family Gender identity (if verbalized by the patient): Male Spiritual care concerns: No Meds Home Medications and Allergies Home Medications Medication Instructions Recorded Confirmed Type hydrochlorothiazide 25 mg tablet 25 mg PO DAILY 04/07/21 12/18/22 History gabapentin 300 mg capsule 300 mg PO TID #270 caps 09/19/22 12/18/22 Rx ashwagandha extract 120 mg capsule 120 mg PO DAILY 11/03/22 12/18/22 History methocarbamol 500 mg tablet 500 mg PO TID PRN muscle spasm #60 11/03/22 12/18/22 Rx tabs omega-3 fatty acids 1,000 mg 1,000 mg PO DAILY 11/03/22 12/18/22 History capsule psyllium husk 0.52 gram capsule 0.52 g PO DAILY 11/03/22 12/18/22 History saffron extract 176.5 mg tablet 176.5 mg PO DAILY 11/03/22 12/18/22 History omeprazole 20 mg capsule,delayed See Rx Instructions .Route 11/11/22 12/18/22 Rx release .COMPLEX #90 caps amlodipine 5 mg tablet See Rx Instructions .Route 11/12/22 12/18/22 Rx .COMPLEX #90 tabs ezetimibe 10 mg tablet See Rx Instructions .Route 11/15/22 12/18/22 Rx .COMPLEX #9
[2022-12-18 14:10] VITALS: BP 88/49; PULSE 48; RESP 16; O2SAT 100
[2022-12-18 14:20] VITALS: BP 98/55; PULSE 47; RESP 15; O2SAT 98
[2022-12-18 14:30] VITALS: BP 117/76; PULSE 46; RESP 22; O2SAT 100
== END 2022-12-18 14:52 | disposition home or self-care (01) ==
PROVIDERS: PCP Family Medicine; Visit Provider Internal Medicine Gastroenterology
PROC: 0DJD8ZZ Inspection of Lower Intestinal Tract, Via Natural or Artificial Opening Endoscopic (ICD-10-PCS; CPT 45378; principal; 2022-12-18 13:45)
DX: Z12.11 Encounter for screening for malignant neoplasm of colon (principal); D12.3 Benign neoplasm of transverse colon; K63.5 Polyp of colon; I10 Essential (primary) hypertension
CPT/HCPCS: 45380; 88305; J2704; J7120

== ENCOUNTER 2024-04-10 09:13 | Emergency (ER) | payer BC, SELFPAY ==
--- NOTE | ~2024-04-10 | XR_ITS ---
EXAMINATION: XR chest 2V DATE: 04/10/2024 09:57 INDICATION: Fever and cough. TECHNIQUE: Frontal and lateral views of the chest were obtained. COMPARISON: Chest 2 views 04/07/2021, chest CT 02/15/2017 FINDINGS: There are airspace opacities in right lower lobe, consistent with pneumonia. No pleural eff usion or pneumothorax. The heart size is normal. There are changes of heart valve replacement. IMPRESSION: 1. Airspace opacities in right lung lower lobe, consistent with pneumonia. Follow-up radiographs are recommended in a few weeks to confirm resolution and exclude malignancy. Reviewed, dictated and finalized at location A. [facility] IMPRESSION: 1. Airspace opacities in right lung lower lobe, consistent with pneumonia. Foll ow-up radiographs are recommended in a few weeks to confirm resolution and excl ude malignancy.
[2024-04-10 09:11] VITALS: BP 123/85; PULSE 93; RESP 18; TEMP 39.4; O2SAT 99
[2024-04-10 09:22] VITALS: RESP 18; O2SAT 99
[2024-04-10 09:37] LABS: Basophils Percent Auto 0.4 % (0.2-1.2); Eosinophils Absolute Auto 0.3 K/mm3 (0-0.3); Eosinophils Percent Auto 3.2 % (0-4.4); Hematocrit 48.3 % (42.0-52.0); Hemoglobin 16.5 g/dL (14.0-18.0); Immature Granulocyte Absolute 0.05 K/mm3 (0.00-0.031); Immature Granulocyte Percent A 0.6 % (0-0.5); Immature Platelet Fraction Pct 3.8 % (0.9-11.2); Lymphocytes Absolute Auto 0.54 K/mm3 (0.9-3.2); Mean Corpuscular HGB Conc 34.2 g/dl (32-36); Mean Corpuscular Volume 87.8 fl (80-100); Mean Platelet Volume 9.8 fl (7.4-10.4); Monocytes Absolute Auto 0.7 K/mm3 (0.1-0.6); Monocytes Percent Auto 8.3 % (2.6-8.5); Neutrophils Absolute Auto 7.3 K/mm3 (1.3-6.7); Neutrophils Percent Auto 81.5 % (45.5-73.1); Platelet Count Result 90 k/mm3 (150-375); Red Cell Distribution Width 13.2 % (11.5-14.5); White Blood Count 8.9 K/mm3 (4.5-10.0)
[2024-04-10] MEDS: ACETAMINOPHEN 500 MG TABLET 1000 MG PO (09:47)
[2024-04-10] MEDS: IBUPROFEN 600 MG TABLET PO (09:47)
[2024-04-10 09:49] LABS: Alanine Aminotransferase 42 U/L (6-50); Albumin Level 4.4 g/dL (3.5-5.1); Alkaline Phosphatase 61 U/L (38-126); Anion Gap 12 mmol/L (4-12); Aspartate Amino Transferase 33 U/L (17-59); Bilirubin,Total 1.3 mg/dL (0.2-1.3); Blood Urea Nitrogen 17 mg/dL (9-20); Calcium 9.1 mg/dL (8.4-10.2); Carbon Dioxide 26 mmol/L (22-30); Chloride 95 mmol/L (98-107); Estimated CRCL calculation 91 ml/min; Estimated Glomerular Filt Rate > 60; Glucose 133 mg/dL (65-110); Sodium 133 mmol/L (137-145)
--- NOTE | 2024-04-10 09:55 | ED_ITS ---
HPI - Fever General Chief Complaint: Fever Stated Complaint: fever Time Seen by Provider: 04/10/24 09:20 Source: patient Mode of arrival: EMS Limitations: no limitations History of Present Illness HPI Narrative: Patient is a 59-year-old male who presents the ED via EMS with report of fever and cough. Patient reports he has been sick for the last 1 week with intermittently productive cough, fevers. States several family members have been sick, as well. Has been taking zqgv-evt-xezmsod cough and cold medicine which includes Tylenol for his symptoms without relief. Reports congestion, sinus drainage, body aches. Denies nausea. Denies chest pain or shortness of breath. Last took medication at 4:00 a.m. this morning. Related Data Home Medications ?Medication ?Instructions ?Recorded ?Confirmed ?Last Taken ?Type hydrochlorothiazide 25 mg tablet 25 mg PO DAILY 04/07/21 02/22/24 12/18/22 04:00 History ashwagandha extract 120 mg capsule 120 mg PO DAILY 11/03/22 02/22/24 12/13/22 History omega-3 fatty acids 1,000 mg 1,000 mg PO DAILY 11/03/22 02/22/24 12/13/22 History capsule psyllium husk 0.52 gram capsule 0.52 g PO DAILY 11/03/22 02/22/24 12/13/22 History saffron extract 176.5 mg tablet 176.5 mg PO DAILY 11/03/22 02/22/24 12/13/22 History lisinopril 40 mg tablet 40 mg PO DAILY 12/09/22 02/22/24 12/18/22 04:00 History metoprolol succinate 200 mg 200 mg PO BID 12/09/22 02/22/24 12/18/22 04:00 History tablet,extended release 24 hr Allergies Allergy/AdvReac Type Severity Reaction Status Date / Time cephalexin Allergy Unknown Unknown Verified 04/10/24 09:21 Ujklsit-RLT-BiJ Reductase Allergy Unknown Unknown Verified 04/10/24 09:21 Inhibitor (Ugnbmwn-Gnk-Owo Reductase Inhibitor) Sulfa (Sulfonamide Allergy Rash Verified 04/10/24 09:21 Antibiotics) Review of Systems 2 Review of Systems: All systems reviewed & are unremarkable except as noted in HPI. All systems reviewed & are unremarkable except as noted in HPI and below PMFSH Past Medical History Medical History Cervical myelopathy COVID BMI 32.0-32.9,adult BMI 34.0-34.9,adult Cataracts, bilateral Adenomatous colon polyp Diarrhea Helicobacter positive gastritis COVID-19 virus infection Ulcers, marginal (~2019) Abnormal heart rhythms Bleeding tendency Heart murmur Hypertension Mitral insufficiency Surgical History Surgical History Hx of tonsillectomy At 30 years old S/P MVR (mitral valve repair) Family History Family History Father , At 80 years old Malignant neoplasm of prostate Hypertension Mother Heart disease Liver disease Diabetes mellitus Hypertension Social History Social History Social History: 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 He drinks 2-3 alcoholic beverages a week. He denies any illicit substance use. He briefly smoked many years ago. Years smoked: 10 Smoking status: Former smoker Tobacco type: cigarettes Second hand tobacco smoke exposure: Yes Alcohol intake: current Drinks per week: 3 Substance use: never Substance use type: does not use Lack of Transportation: No Lack of Food: Sometimes True Current Housing: I Have Housing Concerned About Future Housing: No Difficulty Paying Gas/Electric Bills: No Difficulty Paying for Meds: No Currently Unemployed: No Education: Bachelor's Degree Difficulty w/ Childcare or Family Care: YES Living arrangements: with family Gender identity (if verbalized by the patient): Male Spiritual care concerns: No Exam 2 Narrative: GENERAL: Mildly ill/flushed-appearing, obese with BMI of 30.9, non-toxic, in no acute distress. HEAD: Normocephalic, atraumatic. RESPIRATORY: Airway patent, respirations nonlabored. Clear to auscultation bilaterally, no rales, rhonchi, wheezing. No significant focal lung sounds. Frequent coughing on exam. CARDIOVASCULAR: Regular rate and rhythm without murmurs, rubs, or gallops. MUSCULOSKELETAL: Moves all extremities. No gross deformities. SKIN: Warm, dry, flushed appearing. NEURO: A&O X3. Speech clear. Cranial nerves II-XII grossly intact. Steady gait. No ataxic movements. PSYCHIATRIC: Appropriate mood and affect. Normal interaction. Course Vital Signs Vital signs: Vital Signs Temperature 102.9 F H 04/10/24 09:11 Pulse Rate 93 04/10/24 09:11 Respiratory Rate 18 04/10/24 09:11 Blood Pressure 123/85 04/10/24 09:11 Pulse Oximetry 99 04/10/24 09:11 Oxygen Delivery Room Air 04/10/24 09:11 Temperature 102.9 F H 04/10/24 09:11 Pulse Rate 86 04/10/24 10:08 Respiratory Rate 16 04/10/24 10:08 Blood Pressure 119/64 04/10/24 10:08 Pulse Oximetry 98 04/10/24 10:08 Oxygen Delivery Room Air 04/10/24 09:11 MDM - Fever MDM Narrative Medical decision making narrative: Patient presented to ED with 1 week history of URI symptoms, fever. Patient febrile upon arrival to 102.9? F. Has not taken any medication for fevers since 4:00 a.m. this morning. Given Tylenol and ibuprofen here. Symptoms likely viral. Laboratory studies without leukocytosis. Stable H&H. Platelets are slightly low at 90. No recent bleeding. Not on any anticoagulation. Likely r/t viral infection. Potassium slightly low at 3.0. Given oral replacement. Magnesium also slightly low at 1.4. Oral replacement for this given as well. Otherwise stable electrolytes. Stable kidney function. Normal LFTs. Influenza A positive. Consistent with clinical picture. Patient is out of the window of symptom onset for Tamiflu. Symptoms have been ongoing for the last week. CXR does show evidence of RLL PNA. Given persistent fevers, ongoing nature of symptoms, productive, will cover for potential bacterial process with antibiotics. Feel this is also consistent with clinical picture. Patient is denying any chest pain or shortness of breath. Discussed lab and imaging findings with patient. Feel he is safe for discharge home with outpatient follow-up. Recommended close follow-up with PCP for further evaluation, repeat laboratory/electrolyte testing, repeat chest imaging. Patient is in agreement with plan. Given work note. Discussed strict return precautions. Patient voiced understanding. Discharged in stable condition. Vital signs stable at time of D/C. Medical Records Attestation: I reviewed the patient's medical records. Lab Data Attestation: I reviewed the patient's lab results. 04/10/24 09:29 04/10/24 09:29 Labs: Lab Results 04/10/24 04/10/24 Range/Units 09:20 09:29 WBC 8.9 (4.5-10.0) K/mm3 RBC 5.50 (4.6-6.20) M/mm3 Hgb 16.5 (14.0-18.0) g/dL Hct 48.3 (42.0-52.0) % MCV 87.8 (80-100) fl MCH 30.0 (26-34) pg MCHC 34.2 (32-36) g/dl RDW 13.2 (11.5-14.5) % Plt Count 90 L (150-375) k/mm3 MPV 9.8 (7.4-10.4) fl Immature Gran % (Auto) 0.6 H (0-0.5) % Neut % (Auto) 81.5 H (45.5-73.1) % Lymph % (Auto) 6.0 L (18.3-44.2) % [place] % (Auto) 8.3 (2.6-8.5) % Eos % (Auto) 3.2 (0-4.4) % Baso % (Auto) 0.4 (0.2-1.2) % Lymph # (Auto) 0.54 L (0.9-3.2) K/mm3 [place] # (Auto) 0.7 H (0.1-0.6) K/mm3 Eos # (Auto) 0.3 (0-0.3) K/mm3 Baso # (Auto) 0.0 (0.0-0.1) K/mm3 Abs Immat Gran (auto) 0.05 H (0.00-0.031) K/mm3 Absolute Neuts (auto) 7.3 H (1.3-6.7) K/mm3 Absolute Nucleated RBC 0.000 (0.0-0.012) K/mm3 Nucleated RBC % 0.0 (0.0-0.2) % % Immature Plt Fraction 3.8 (0.9-11.2) % Sodium 133 L (137-145) mmol/L Potassium 3.0 L (3.4-5.0) mmol/L Chloride 95 L (98-107) mmol/L Carbon Dioxide 26 (22-30) mmol/L Anion Gap 12 (4-12) mmol/L BUN 17 (9-20) mg/dL Creatinine 1.08 (0.7-1.3) mg/dL Estim Creat Clear Calc 91 ml/min Estimated GFR > 60 (59 - ) Glucose 133 H (65-110) mg/dL Calcium 9.1 (8.4-10.2) mg/dL Magnesium 1.4 L (1.6-2.3) mg/dL Total Bilirubin 1.3 (0.2-1.3) mg/dL AST 33 (17-59) U/L ALT 42 (6-50) U/L Alkaline Phosphatase 61 (38-126) U/L Total Protein 8.0 (6.3-8.2) g/dL Albumin 4.4 (3.5-5.1) g/dL Influenza A (RT-PCR) Positive A (Negative) Influenza B (RT-PCR) Negative (Negative) RSV (RT-PCR) Negative (Negative) SARS-CoV-2 RNA (RT-PCR) Negative (Negative) Imaging Data Attestation: I personally reviewed and interpreted this imaging study as follows: Radiologist's impression: ITS Impressions Chest X-Ray 04/10/24 09:58 IMPRESSION: 1. Airspace opacities in right lung lower lobe, consistent with pneumonia. Follow-up radiographs are recommended in a few weeks to confirm resolution and exclude malignancy. Discharge Plan Discharge Clinical Impression: Influenza A, Thrombocytopenia Pneumonia Qualifiers: Pneumonia type: due to unspecified organism Laterality: right Lung location: l ower lobe of lung Qualified Code(s): J18.9 - Pneumonia, unspecified organism Patient Disposition: Home, Self-Care Condition: Stable Instructions: Antibiotic Form, Influenza (ED), Bacterial Pneumonia (ED), Viral Syndrome (ED) Additional Instructions: You were diagnosed with Influenza A today. Isolate at home as you are contagious. Your chest x-ray showed evidence of pneumonia. Take antibiotics as prescribed. Stay well-hydrated at home. Recommend electrolyte rich fluids, Gatorade, Pedialyte, body armor. Zofran as needed for nausea. Tessalon Perles as needed for cough. Tylenol and Ibuprofen around the clock as needed for discomfort and/or fevers. Recommend gizi-yya-rcngqir cough and cold medicines for symptom relief, Delsym, Mucinex, DayQuil, NyQuil, Sudafed, Robitussin, TheraFlu. Follow with primary care doctor for further evaluation and to ensure resolution of symptoms. Your platelets, potassium, magnesium were all slightly low today. Recommend follow-up with PCP for repeat laboratory evaluation. Return to the ED if you experience chest pain, difficulty breathing, unable to keep down food or drink, severe pain, or any other symptoms of concern. Patient Language: Thai Prescriptions: New benzonatate 200 mg capsule 200 mg PO TID PRN (Reason: cough) Qty: 15 0RF doxycycline monohydrate 100 mg tablet 100 mg PO BID 7 Days Qty: 14 0RF ondansetron 4 mg tablet,disintegrating 4 mg PO Q8H PRN (Reason: nausea and vomiting) Qty: 15 0RF No Action omega-3 fatty acids 1,000 mg capsule 1,000 mg PO DAILY psyllium husk 0.52 gram capsule 0.52 g PO DAILY saffron extract 176.5 mg tablet 176.5 mg PO DAILY ashwagandha extract 120 mg capsule 120 mg PO DAILY triamcinolone acetonide 0.5 % ointment 1 applic topical BID Qty: 15 0RF hydrochlorothiazide 25 mg tablet 25 mg PO DAILY lisinopril 40 mg tablet 40 mg PO DAILY metoprolol succinate 200 mg tablet extended release 24 hr 200 mg PO BID gabapentin 300 mg capsule 300 mg PO TID Qty: 270 0RF methocarbamol 500 mg tablet 500 mg PO TID PRN (Reason: muscle spasm) Qty: 180 1RF amlodipine 5 mg tablet See Rx Instructions .ROUTE .COMPLEX Qty: 90 0RF Dose Instruction: TAKE 1 TABLET BY MOUTH DAILY Rx Instructions: TAKE 1 TABLET BY MOUTH DAILY ezetimibe 10 mg tablet See Rx Instructions .ROUTE .COMPLEX Qty: 90 1RF Dose Instruction: TAKE 1 TABLET BY MOUTH EVERY DAY Rx Instructions: TAKE 1 TABLET BY MOUTH EVERY DAY omeprazole 20 mg capsule,delayed release(DR/EC) See Rx Instructions .ROUTE .COMPLEX Qty: 90 1RF Dose Instruction: TAKE 1 CAPSULE BY MOUTH EVERY DAY Rx Instructions: TAKE 1 CAPSULE BY MOUTH EVERY DAY meloxicam 15 mg tablet 15 mg PO DAILY Qty: 90 0RF Follow-up/Referrals: Patrick Cano MD [Primary Care Provider] - Stand Alone Forms: Work/School Release IP Time of Disposition: 11:00
[2024-04-10 10:00] LABS: Influenza A QL RT-PCR Positive (Negative); Influenza B QL RT-PCR Negative (Negative); RSV RNA, RT-PCR Negative (Negative); SARS-CoV-2 RNA PCR Negative (Negative)
[2024-04-10] MEDS: POTASSIUM CHLORIDE 20 MEQ ER TABLET 40 MEQ PO (10:01)
[2024-04-10 10:08] VITALS: BP 119/64; PULSE 86; RESP 16; O2SAT 98
[2024-04-10 10:32] LABS: Magnesium 1.4 mg/dL (1.6-2.3)
[2024-04-10] MEDS: MAGNESIUM OXIDE 400 MG TABLET PO (11:08)
[2024-04-10 11:13] VITALS: BP 121/74; PULSE 83; RESP 16; TEMP 36.8; O2SAT 97
--- OUTSIDE RECORDS SUMMARY | 2024-04-10 12:04 | XMS_ITS | Referral Summary ---
Author Organization [facility] D Address [address] [place] [id number] Care Team Providers Care Budget Report Clerk Name Role Phone Patrick Cano MD Primary Care Provider + [phone] Deondre Laws MD Unavailable [phone] Corrine PetersonT Unavailable [phone] Encounters Date Type Department Care Team Description 04/03/2024 Telephone [facility] Medical [facility] Cardiology [address] [place] [address] [address] [place] [address] Chas Hammond MD Scheduling Appointments 02/07/2024 Telephone [facility] Cardiology [address] [place] [address] [address] [place] [address] Chas Hammond MD from Last 3 Months Allergies Active Allergy Reactions Criticality Noted Date Comments Cephalexin Rash Medium 03/17/2017 Jtfplvc-Sdd-Pei Reductase Inhibitors Muscle pain,Joint pain Medium 07/22/2018 Medications ezetimibe (ZETIA) 10 mg tablet Take 1 tablet (10 mg total) by mouth daily 2 Active methocarbamoL (ROBAXIN) 500 mg tablet Take 1 tablet (500 mg total) by mouth 4 (four) times a day as needed for muscle spasms Active oxyCODONE (ROXICODONE) 5 mg immediate release tabletIndications:P ain Take 5 mg by mouth every 4 (four) hours as needed Active melatonin 5 mg tablet Take 1 tablet (5 mg total) by mouth nightly as needed Active amLODIPine (NORVASC) 5 mg tablet Take 1 tablet (5 mg total) by mouth daily 30 tablet 2 Active omeprazole (PriLOSEC) 20 mg capsule Take by mouth daily 2 Active sennosides 17.2 mg tablet Take 17.2 mg by mouth nightly 2 Active metoprolol (LOPRESSOR) 100 mg tablet TAKE 2 TABLETS BY MOUTH TWICE A DAY 360 tablet 3 4 Active gabapentin (NEURONTIN) 300 mg capsule TAKE 1 CAPSULE BY MOUTH THREE TIMES A DAY 90 capsule 11 4 Active hydroCHLOROthiazide (HYDRODIURIL) 25 mg tabletIndications:O ther hyperlipidemia,Othe r specified postprocedural states Take 1 tablet (25 mg total) by mouth daily 30 tablet 2 4 Active lisinopriL (PRINIVIL,ZESTRIL) 40 mg tablet Take 1 tablet (40 mg total) by mouth daily 30 tablet 2 4 Active Active Problems Problem Noted Date Diagnosed Date Hypertensive crisis 08/11/2021 Fall 08/08/2021 Head injury 08/08/2021 Neck pain 08/08/2021 Scalp laceration 08/08/2021 Subarachnoid bleed 08/08/2021 Essential hypertension 07/22/2018 Assessment & Plan (04/09/2021 10:31 AM SITE MANAGER): Normotensive on current therapy, continue Assessment & Plan (03/20/2020 10:20 AM SITE MANAGER): Suboptimal control, add HCTZ, will need BMP afterwards. Assessment & Plan (07/22/2018 10:01 AM CDT): Suboptimally controlled, add lisinopril 20. Other hyperlipidemia 07/22/2018 Assessment & Plan (04/09/2021 10:32 AM SITE MANAGER): Excellent control on current therapy Assessment & Plan (03/20/2020 10:20 AM SITE MANAGER): Modestly elevated, encouraged weight loss and rosuvastatin. Assessment & Plan (07/22/2018 10:01 AM CDT): Marked triglyceride elevation today, obtain follow-up fasting lipid panel Aftercare following surgery of the circulatory s ystem 03/17/2017 Status post mitral valve repair 03/17/2017 Assessment & Plan (04/09/2021 10:32 AM SITE MANAGER): Intact, follow expectantly Assessment & Plan (03/20/2020 10:20 AM SITE MANAGER): Clinically intact, no recent assessment, plan echo Doppler. Further recommendations forthcoming Assessment & Plan (07/22/2018 10:01 AM CDT): Intact mitral valve repair Assessment & Plan (07/05/2017 2:38 PM CDT): Clinically intact mitral valve repair, reassess with echo Doppler. Chronic tonsillitis 12/19/2012 SDH (subdural hematoma) Resolved Problems Problem Noted Date Diagnosed Date Resolved Date Non-rheumatic mitral regurgitation 01/18/2017 08/09/2019 Assessment & Plan (01/18/2017 11:29 AM SITE MANAGER): He has symptomatic severe mitral regurgitation due to severe valve prolapse with associated left ventricular enlargement and mild LV dysfunction. He needs to consider surgical repair. I reviewed that in detail with him. Will make arrangements for right left heart catheterization. And further recommendations will be forthcoming. Nonischemic cardiomyopathy (CMS/HCC) 01/18/2017 08/09/2019 Assessment & Plan (07/22/2018 10:01 AM CDT): Resolved, now with normal LV function. Assessment & Plan (07/05/2017 2:37 PM CDT): Previous moderate LV dysfunction prior to mitral valve repair, reassess with echo Doppler. Further recommendations will be forthcoming. Assessment & Plan (01/18/2017 11:29 AM SITE MANAGER): He has mild LV dysfunction due to severe mitral regurgitation, clinically euvolemic, on BJ-inhibitor therapy. Immunizations Immunization Administration Dates Next Due Flucelvax Influenza Quad 10/20/2018 Hep A / Hep B 06/29/2011,11/26/2009,04/03/2008 Influenza, Quadrivalent, Spl it, Preservative Free, Intramuscular 11/18/2020,11/16/2019,12/22/2017 Influenza, Trivalent, Cell C ulture-based MDCK, Preservative Free, Antibiotic Free, Intramuscular 10/20/2018 Influenza, Trivalent, IM (MDV) 12/22/2013,2012,12/14/2011 MMR 08/14/2011,06/29/2011 Polio, Unspecified 06/29/2011 Tdap 08/08/2021,11/14/2007 ZOSTER Recombinant 02/19/2019,10/20/2018 Social History Tobacco Use Types Packs/Day Years Used Date Smoking Tobacco: Former Cigarettes Q uit: 01/25/2017 Smokeless Tobacco: Never Tobacco Cessation:Counseling Given: No Alcohol Use Standard Drinks/Week Comments Yes 0 (1 standard drink = 0.6 oz pur e alcohol) reg Social Connection and Isolat ion Panel [NHANES] Answer Date Recorded In a typical week, how many times do you talk on the phone with family, friends, or neighbors? Three times a week 08/12/2021 How often do you get togethe r with friends or relatives? Three times a week 08/12/2021 How often do you attend chur ch or pentecostalism services? More than 4 times per year 08/12/2021 Do you belong to any clubs o r organizations such as religious groups, unions, fraternal or athletic groups, or school groups? No 08/12/2021 How often do you attend meet ings of the clubs or organizations you belong to? Never 08/12/2021 Are you , , di vorced, , never , or living with a partner? 08/12/2021 AUDIT-C Answer Date Recorded Q1: How often do you have a drink containing alc ohol? Never 11/27/2021 Average Number of Drinks Not on file 022 Q3: How often do you have si x or more drinks on one occasion? Never 11/27/2021 Overall Financial Resource Strain (CARDIA) Answe r Date Recorded How hard is it for you to pa y for the very basics like food, housing, medical care, and heating? Somewhat hard 08/12/2021 PRAPARE - Transportation Answer Date Re corded In the past 12 months, has l ack of transportation kept you from medical appointments or from getting medications? No 07/24 In the past 12 months, has l ack of transportation kept you from meetings, work, or from getting things needed for daily living? No 08/12/2021 Sex and Gender Information Value Date Recorded Sex Assigned at Not on file Legal Sex Male 9:40 AM SITE MANAGER Gender Identity Not on file Sexual Orientation Not on file Last Filed Vital Signs Vital Sign Reading Time Taken Comments Blood Pressure 98/78 04/01/2023 11:21 AM SITE MANAGER Pulse 54 04/01/2023 11:21 AM SITE MANAGER Temperature 36.2 C (97.1 F) 08/13/2021 8:00 AM CDT Respiratory Rate 15 08/13/2021 12:00 PM CDT Oxygen Saturation 96% 04/01/2023 11:21 AM SITE MANAGER Inhaled Oxygen Concentration - - Weight 122.9 kg (271 lb) 04/01/2023 11:21 AM SITE MANAGER Height 193 cm (6' 4 ) 04/01/2023 11:21 AM SITE MANAGER Body Mass Index 32.99 04/01/2023 11:21 AM SITE MANAGER Plan of Treatment Not on file Insurance [facility] [employer] Member Subscriber Plan / Payer (Ef fective 2017-Present) Name:Benjie Chavez Relation to Subscriber:Self Name:Benjie Chavez Payer ID:[id number] (IC) Group ID:[id number] Type:[facility] Address: [facility] [id number] [place] [phone] [facility] [employer] Advance Directives For more information, please contact: [phone] Documents on File Type Date Recorded Patient Music Producer Expl anation ADVANCE DIRECTIVE 08/01/2014 12:00 AM BINA Cardozo OF IN PROCESS INSPECTOR FINANCIAL/MEDICAL * Full Code (Latest Code Status on File) Date Activated Date Inactivated Comments 08/11/2021 12:12 PM 08/13/2021 5:50 PM Care Teams Budget Report Clerk Relationship Specialty Start Date End Date Patrick Cano MD PCP - General Family Medicine 01/07/17 Deondre Laws MD [address] [address] Consulting Physician Neurosurgery 08/13/21 Corrine Peterson DPT [address] [address] Physical Therapist Physical Therapy 08/26/21
--- OUTSIDE RECORDS SUMMARY | 2024-04-10 12:04 | XMS_ITS | Patient Health Summary ---
Author Organization [facility] Address [address] [address] Care Team Providers Care Founder And Ceo Name Role Phone Unavailable Primary Care Provider Unavailabl e Note from [facility],non-owned Affiliates and Associated Physician Practices is amultiple site organization consisting of ambulatory clinics and hospital sitesin [place], [place], [place] and [place]. This disclosure is being madepursuant to the Care Everywhere program and may not contain all information available regarding this patient. Last updated 17.[facility] Allergies * Hmg-Coa-R Inhibitors(Myalgias) -Medium Criticality * Cephalexin(Rash) -Medium Criticality Medications * Be aware that medications may not be up to date on this document. Alwaysverify current medications with the patient. * ezetimibe (ZETIA) 10 MG tablet(Started 03/26/2021) Take 10 mg by mouth once daily * hydroCHLOROthiazide (HYDRODIURIL) 25 MG tablet(Started 09/17/2020) Take 1 tablet by mouth once daily * lisinopril (PRINIVIL; ZESTRIL) 20 MG tablet(Started 02/12/2021) Take 1 tablet by mouth once daily * metoprolol tartrate IR (LOPRESSOR) 100 MG tablet(Started 02/13/2021) Take 2 tablets by mouth 2 times daily * omeprazole (PRILOSEC) 20 MG capsule(Started 11/07/2020) Take 20 mg by mouth once daily * acetaminophen (TYLENOL) 325 MG tablet(Started 08/09/2021) Take 2 (two) tablets by mouth every 6 hours Maximum allowable Acetaminophen amount = 4 Grams (4000 mg) / 24 hours. * senna (SENOKOT EXTRA STRENGTH) 17.2 MG(Started 08/09/2021) Take 17.2 mg by mouth at bedtime * oxyCODONE, immediate release, (ROXICODONE) 5 MG tablet(Started 08/09/2021) Take 1 (one) tablet by mouth every 4 hours as needed * methocarbamol (ROBAXIN) 500 MG tablet(Started 08/09/2021) Take 1 (one) tablet by mouth every 6 hours as needed for Muscle Spasms Active Problems Problem Noted Date Diagnosed Date Essential (primary) hypertension 08/08/2021 High blood triglycerides 08/08/2021 Neck pain 08/08/2021 Subdural hematoma 08/08/2021 Head injury 08/08/2021 Fall 08/08/2021 Scalp laceration 08/08/2021 Subarachnoid bleed 08/08/2021 Immunizations * FLU VACCINE TRI IIV3 SPLIT IM (FLUVIRIN)(Given 12/22/2013, 12/05/2012, 12/14/2011) * HEP A/HEP B(Given 06/29/2011, 11/26/2009, 04/03/2008) * INFLUENZA VACCINE, CELL CULTURE, QUADR. (FLUCELVAX QUADRIVALENT; 6MO+) (CCIIV4)(Given 10/20/2018) * INFLUENZA VACCINE, QUADR. (FLUZONE; FLULAVAL; FLUARIX; AFLURIA QUADRIVALENT; 6MO+), 0.5 ML (IIV4)(Given 11/18/2020, 11/16/2019) * MMR VACCINE(Given 08/14/2011, 06/29/2011) * POLIO,HISTORIC VACCINE(Given 06/29/2011) * TDAP (7yrs+)(Given 08/08/2021) * TDAP, HISTORIC VACCINE(Given 11/14/2007) * Zoster Hzv Vacc Recombinant Inj Im(Given 02/19/2019, 10/20/2018) Social History Tobacco Use Types Packs/Day Years Used Date Smoking Tobacco: Never Assessed Sex and Gender Information Value Date Recorded Sex Assigned at Not on file Gender Identity Not on file Sexual Orientation Not on file Last Filed Vital Signs Vital Sign Reading Time Taken Comments Blood Pressure 157/76 08/09/2021 4:23 PM CDT Pulse 56 08/09/2021 4:23 PM CDT Temperature 36.7 C (98.1 F) 08/09/2021 4:23 PM CDT Respiratory Rate 18 08/09/2021 4:23 PM CDT Oxygen Saturation 98% 08/09/2021 4:23 PM CDT Inhaled Oxygen Concentration - - Weight 99.8 kg (220 lb) 08/08/2021 2:55 AM CDT Height 185.4 cm (6' 1 ) 08/08/2021 2:55 AM CDT Body Mass Index 29.03 08/08/2021 2:55 AM CDT Procedures * PHOSPHORUS BLOOD(Performed 08/09/2021) * MAGNESIUM BLOOD(Performed 08/09/2021) * CALCIUM IONIZED WHOLE BLOOD(Performed 08/09/2021) * CBC W AUTO DIFFERENTIAL(Performed 08/09/2021) * BASIC METABOLIC PANEL (CALCIUM TOTAL)(Performed 08/09/2021) * TROPONIN I(Performed 08/08/2021) * PT EVAL AND TREAT(Performed 08/08/2021) * OT EVAL AND TREAT(Performed 08/08/2021) * MRI CERVICAL SPINE WO CONTRAST(Performed 08/08/2021) Performed for Neck pain * CT HEAD WO CONTRAST(Performed 08/08/2021) Performed for Subdural hematoma (HCC), Subarachnoid bleed (HCC) * URINALYSIS W/MICROSCOPIC NO CULTURE(Performed 08/08/2021) * URINE DRUG SCREEN IMMUNOASSAY(Performed 08/08/2021) * TYPE + SCREEN PANEL(Performed 08/08/2021) * TROPONIN I(Performed 08/08/2021) * BLOOD TYPE VERIFICATION(Performed 08/08/2021) * LIPASE BLOOD(Performed 08/08/2021) * TEG 6S PLATELET MAPPING(Performed 08/08/2021) * TEG 6 GLOBAL HEMOSTASIS W/ LYSIS(Performed 08/08/2021) * AMYLASE BLOOD(Performed 08/08/2021) * XR CHEST 1VW PORTABLE(Performed 08/08/2021) Performed for Neck pain * ED LACERATION REPAIR(Performed 08/08/2021) * CT CHEST ABDOMEN PELVIS W CONT(Performed 08/08/2021) Performed for Fall, initial encounter * CT LUMBAR SPINE WO CONTRAST(Performed 08/08/2021) Performed for Fall, initial encounter * CT THORACIC SPINE WO CONTRAST(Performed 08/08/2021) Performed for Fall, initial encounter * CT CERVICAL SPINE WO CONTRAST(Performed 08/08/2021) Performed for Injury of head, initial encounter, Neck pain * CT HEAD WO CONTRAST(Performed 08/08/2021) Performed for Injury of head, initial encounter * EKG 12-LEAD(Performed 08/08/2021) Performed for Injury of head, initial encounter * PT-INR [facility](Performed 08/08/2021) * COMPREHENSIVE METABOLIC PANEL(Performed 08/08/2021) * CBC W AUTO DIFFERENTIAL(Performed 08/08/2021) * ALCOHOL ETHYL BLOOD(Performed 08/08/2021) Results * (ABNORMAL) CALCIUM IONIZED WHOLE BLOOD (08/09/2021 2:44 AM CDT) [facility] Calcium Ionized 1.18 mmol/L 08/09/2021 2:54 AM CDT [facility] pH 7.40 7.35 - 7.45 pH 08/09/2021 2:54 AM CDT [facility] Ionized Calcium pH Adjusted 1.18(L) 1.19 - 1.34 mmol/L 08/09/2021 2:54 AM T [facility] Blood BLOOD SPECIMEN / Unknown Lab Venipuncture / Unknown 08/09/2021 2:44 AM CDT 08/09/2021 2:52 AM CDT Nicki Marvin MD LAB - CHEMISTRY ORDERABLES Performing Organization Address City/State/[facility] Co de Phone Number [facility] [address] [place] [phone], [facility] [phone] * (ABNORMAL) CBC W AUTO DIFFERENTIAL (08/09/2021 2:44 AM CDT) Only the most recent of2 resultswithin the time period is included. [facility] WBC 8.8 3.5 - 10.5 10 3/uL 08/09/2021 3:32 AM CDT [facility] RBC 5.01 4.30 - 5.70 10 6/uL 08/09/2021 3:32 AM [facility] Hemoglobin 15.2 12.0 - 17.6 g/dL 08/09/2021 3:32 AM [facility] Hematocrit 45.0 35.2 - 51.7 % 08/09/2021 3:32 AM [facility] MCV 89.8 80.7 - 98.3 fL 08/09/2021 3:32 AM [facility] MCH 30.3 26.7 - 34.0 pg 08/09/2021 3:32 AM [facility] MCHC 33.8 30.8 - 35.9 g/dL 08/09/2021 3:32 AM [facility] Platelet Count 128(L) 150 - 400 10 3/uL 08/09/2021 3:32 AM [facility] RDW-SD 46.6 36.0 - 50.0 fL 08/09/2021 3:32 AM [facility] RDW-CV 14.1 11.2 - 14.8 % 08/09/2021 3:32 AM [facility] MPV 9.8 9.4 - 12.9 fL 08/09/2021 3:32 AM [facility] nRBC Absolute 0.00 0 10 3/uL 08/09/2021 3:32 AM [facility] nRBC Auto 0.0 0 /100 WBC 08/09/2021 3:32 AM [facility] Neutrophils % 87.1(H) 35.0 - 70.0 % 08/09/2021 3:32 AM [facility] Lymphocytes % 7.3(L) 20.0 - 43.0 % 08/09/2021 3:32 AM [facility] Monocytes % 4.8(L) 5.0 - 13.0 % 08/09/2021 3:32 AM [facility] Eosinophils % 0.0 0.0 - 6.0 % 08/09/2021 3:32 AM [facility] Basophil % 0.1 0.0 - 2.0 % 08/09/2021 3:32 AM [facility] Neutrophils Absolute 7.65(H) 1.60 - 7.00 10 3/uL 08/09/2021 3:32 AM CDT [facility] Lymphocyte Absolute 0.64(L) 1.10 - 3.90 10 3/uL 08/09/2021 3:32 AM CDT [facility] Monocytes Absolute 0.42 0.26 - 1.07 10 3/uL 08/09/2021 3:32 AM T [facility] Eosinophils Absolute 0.00 0.00 - 0.47 10 3/uL 08/09/2021 3:32 AM CDT [facility] Basophils Absolute 0.01 0.00 - 0.08 10 3/uL 08/09/2021 3:32 AM T [facility] Immature Granulocytes % 0.7 0.0 - 1.0 % 08/09/2021 3:32 AM T [facility] Immature Granulocytes Absolute 0.06 08/09/2021 3:32 AM T [facility] Immature Platelet Fraction 3.1 1.1 - 6.2 % 08/09/2021 3:32 AM [facility] Blood BLOOD SPECIMEN / Unknown Lab Venipuncture / Unknown 08/09/2021 2:44 AM CDT 08/09/2021 2:53 AM CDT Nicki Marvin MD LAB - HEMATOLOG Y ORDERABLES Performing Organization Address [facility] Co de Phone Number [facility] [address] [place] [phone], [facility] [phone] * (ABNORMAL) BASIC METABOLIC PANEL (CALCIUM TOTAL) (08/09/2021 2:44 AM CDT) BUN 9 7 - 26 mg/dL 08/09/2021 3:18 AM [facility] Creatinine 0.98 0.71 - 1.16 mg/dL 08/09/2021 3:18 AM [facility] Sodium 141 136 - 145 mmol/L 08/09/2021 3:18 AM [facility] Potassium 4.1 3.5 - 4.5 mmol/L 08/09/2021 3:18 AM [facility] Chloride 105 98 - 107 mmol/L 08/09/2021 3:18 AM [facility] CO2 24 22 - 29 mmol/L 08/09/2021 3:18 AM [facility] Glucose 134(H) 70 - 115 mg/dL 08/09/2021 3:18 AM [facility] Calcium 9.2 8.4 - 10.2 mg/dL 08/09/2021 3:18 AM [facility] Anion Gap 16 8 - 18 08/09/2021 3:18 AM [facility] BUN/Creatinine Ratio 9 7 - 23 08/09/2021 3:18 AM [facility] Osmolality Calculated 293 270 - 300 mOsm/kg 08/09/2021 3:18 AM [facility] eGFR by CKD-EPI >90 >=90 mL/min/1.7 3 m2 08/09/2021 3:18 AM [facility] Blood BLOOD SPECIMEN / Unknown Lab Venipuncture / Unknown 08/09/2021 2:44 AM CDT 08/09/2021 2:53 AM CDT Nicki Marvin MD LAB - CHEMISTRY ORDERABLES [address] [address], [facility] [phone] * (ABNORMAL) PHOSPHORUS BLOOD (08/09/2021 2:44 AM CDT) Phosphorus 1.1(L) 2.8 - 5.1 mg/dL 08/09/2021 3:18 AM T [facility] Blood BLOOD SPECIMEN / Unknown Lab Venipuncture / Unknown 08/09/2021 2:44 AM CDT 08/09/2021 2:53 AM CDT Nicki Marvin MD LAB - CHEMISTRY ORDERABLES [address] [address], [facility] [phone] * MAGNESIUM BLOOD (08/09/2021 2:44 AM CDT) Magnesium 2.0 1.6 - 2.6 mg/dL 08/09/2021 3:18 AM CDT [facility] Blood BLOOD SPECIMEN / Unknown Lab Venipuncture / Unknown 08/09/2021 2:44 AM CDT 08/09/2021 2:53 AM CDT Nicki Marvin MD LAB - CHEMISTRY ORDERABLES [facility] [address] [place] [address], [facility] [phone] * (ABNORMAL) TROPONIN I (08/08/2021 3:27 PM CDT) Only the most recent of2 resultswithin the time period is included. Pathologist [facility] Troponin I 0.048(H) <0.032 ng/mL 08/08/2021 4:07 PM CDT [facility] Blood BLOOD SPECIMEN / Unknown Venipuncture / Unknown 08/08/2021 3:27 PM CDT 08/08/2021 3:35 PM CDT Nicki Marvin MD LAB - CHEMISTRY ORDERABLES Performing Organization Address City/[facility]/ZIP Co de Phone Number [facility] [address] [place] [address], [facility] [phone] * MRI CERVICAL SPINE WO CONTRAST (08/08/2021 12:11 PM CDT) Anatomical Region Laterality Modality Pelvis Magnetic Resonan ce 08/08/2021 1:43 PM CDT Impressions 08/08/2021 1:47 PM CDT IMPRESSION: 1.No MR evidence of acute fracture or ligament injury. 2.Degenerative changes without critical spinal canal stenosis. Multilevel foraminal stenosis, severe at right C4-5. This report was electronically signed by ARGENIS CHRISTIAN M.D. on 08/08/2021 1:47 PM . Narrative 08/08/2021 1:47 PM CDT MRI of the cervical spine without intravenous contrast HISTORY: M54.2: Neck pain TECHNIQUE: MRI of the cervical spine was performed without intravenous contrast according to a trauma protocol. COMPARISON: CT scan of cervical spine from earlier the same day was reviewed. FINDINGS: There is no MR evidence of acute fracture or ligament injury. The craniocervical junction is normal in alignment. The spinal curvature is maintained without subluxation. There are no aggressive appearing focal bone marrow lesions. The spinal cord is unremarkable. There is no cord signal abnormality or compression. There is no epidural hemorrhage. Multilevel degenerative changes are seen resulting in mild spinal canal stenosis from C3-4 to C5-6 disc levels. Spinal cord impingement is seen at C3-4 to C5-6 disc levels. There is severe stenosis of the right C4-5 neural foramen There is mild to moderate stenosis from remainder of the neural foramina bilaterally from C3-4 to C6-7. There is no significant abnormality of the prevertebral or paraspinal soft tissues. Procedure Note Argenis Christian MD - 08/08/2021 MRI of the cervical spine without intravenous contrast HISTORY: M54.2: Neck pain TECHNIQUE: MRI of the cervical spine was performed without intravenous contrast according to a trauma protocol. COMPARISON: CT scan of cervical spine from earlier the same day was reviewed. FINDINGS: There is no MR evidence of acute fracture or ligament injury. The craniocervical junction is normal in alignment. The spinal curvature is maintained without subluxation. There are no aggressive appearingfocal bone marrow lesions. The spinal cord is unremarkable. There is no cord signal abnormality or compression. There is no epidural hemorrhage. Multilevel degenerative changes are seen resulting in mild spinal canal stenosis from C3-4 to C5-6 disc levels. Spinal cord impingement is seenat C3-4 to C5-6 disc levels. There is severe stenosis of the right C4-5 neural foramen There is mild to moderate stenosis from remainder of the neural foramina bilaterally from C3-4 to C6-7. There is no significant abnormality of the prevertebral or paraspinal soft tissues. IMPRESSION: 1.No MR evidence of acute fracture or ligament injury. 2.Degenerative changes without critical spinal canal stenosis.Multilevel foraminal stenosis, severe at right C4-5. This report was electronically signed by ARGENIS CHRISTIAN M.D. on 08/08/2021 1:47 PM . Nicki Marvin MD MR ORDERABLES * CT HEAD WO CONTRAST (08/08/2021 10:28 AM CDT) Only the most recent of2 resultswithin the time period is included. Anatomical Region Laterality Modality Head Computed Tomogra phy 08/08/2021 10:3 4 AM CDT Impressions 08/08/2021 6:04 PM CDT IMPRESSION: Compared to the prior head CT from 08/08/2021 at 3:47 AM: 1.Evolving acute left cerebral convexity subdural hematoma with mild local mass effect, grossly unchanged from prior 2.Stable small volume subarachnoid hemorrhage in the left frontal sulci. 3.No new acute intracranial hemorrhage.. This report was electronically signed by DONNIE MURPHY on 08/08/2021 6:04 PM . Narrative 08/08/2021 6:[address] HEAD WO CONTRAST EXAMINATION: Computed tomography (CT) of the head without contrast DATE: 08/08/2021 10:28 AM HISTORY: S06.5X9A: Subdural hematoma. I60.9: Subarachnoid bleed TECHNIQUE: CT of the head was performed without contrast according to standard protocol. COMPARISON: CT of the head from 08/08/2021 at 3:47 AM FINDINGS: Acute subdural hematoma along the left frontoparietal convexity measuring up to 9 mm maximal thickness, (series 6, image 52), grossly unchanged from prior. There is extension along the left paramedian posterior falx. There is mild effacement of the underlying cerebral sulci. A small volume of subarachnoid hemorrhage is noted in the left frontal lobe. There is mild cerebral and cerebellar volume loss with associated ex vacuo ventricular dilatation. The basilar cisterns are patent. No significant midline shift is seen. The guan-white matter differentiation is normal. Suspected minimal white matter hypoattenuation is indicative of chronic small vessel ischemic disease. There is trace vascular calcification of the carotid siphons. No acute calvarial fracture is identified. Other than bilateral cataract extractions, the orbits appear normal. There is mild paranasal sinus disease. The mastoid air cells are clear. No soft tissue abnormality is identified. Soft tissue swelling/hematoma along the left occipital scalp with overlaying skin lacerations. Procedure Note Donnie Murphy MD - 08/08/2021 CT HEAD WO CONTRAST EXAMINATION: Computed tomography (CT) of the head without contrast DATE: 08/08/2021 10:28 AM HISTORY: S06.5X9A: Subdural hematoma. I60.9: Subarachnoid bleed TECHNIQUE: CT of the head was performed without contrast according to standard protocol. COMPARISON: CT of the head from 08/08/2021 at 3:47 AM FINDINGS: Acute subdural hematoma along the left frontoparietal convexitymeasuring up to 9 mm maximal thickness, (series 6, image 52), grossly unchangedfrom prior. There is extension along the left paramedian posterior falx.There is mild effacement of the underlying cerebral sulci. A small volume of subarachnoid hemorrhage is noted in the left frontal lobe. There is mild cerebral and cerebellar volume loss with associated ex vacuo ventricular dilatation. The basilar cisterns are patent. No significant midlineshift is seen. The guan-white matter differentiation is normal. Suspected minimal white matter hypoattenuation is indicative of chronic smallvessel ischemic disease. There is trace vascular calcification of the carotid siphons. No acute calvarial fracture is identified. Other than bilateral cataract extractions, the orbits appear normal. There is mild paranasal sinus disease. The mastoid air cells are clear. No soft tissueabnormality is identified. Soft tissue swelling/hematoma along the left occipital scalp with overlaying skin lacerations. IMPRESSION: Compared to the prior head CT from 08/08/2021 at 3:47 AM: 1.Evolving acute left cerebral convexity subdural hematoma with mildlocal mass effect, grossly unchanged from prior 2.Stable small volume subarachnoid hemorrhage in the left frontal sulci. 3.No new acute intracranial hemorrhage.. This report was electronically signed by DONNIE MURPHY on08/08/2021 6:04 PM . Annemarie Ye MD CT ORDERABLES * (ABNORMAL) URINALYSIS W/MICROSCOPIC NO CULTURE (08/08/2021 10:05 AM CDT) Color UA Yellow Straw, Yellow 08/08/2021 10:25 AM T [facility] Clarity UA Clear Clear 08/08/2021 10:25 AM T [facility] Specific [place] UA 1.010 1.005 - 1.030 08/08/2021 10:25 AM [facility] pH UA 7.0 5.0 - 8.0 pH 08/08/2021 10:25 AM [facility] Protein UA Negative Negative 08/08/2021 10:25 AM [facility] Glucose UA Negative Negative 08/08/2021 10:25 AM [facility] Ketone UA Trace(A) Negative 08/08/2021 10:25 AM [facility] Bilirubin UA Negative Negative 08/08/2021 10:25 AM [facility] Blood UA Negative Negative 08/08/2021 10:25 AM [facility] Nitrite UA Negative Negative 08/08/2021 10:25 AM [facility] Leukocyte Esterase Negative Negative 08/08/2021 10:25 AM [facility] Urobilinogen UA Negative Negative mg/dL 08/08/2021 10:25 AM [facility] RBC UA 0-2 None Seen, 0-2, 3-5 /HPF 08/08/2021 10:25 AM [facility] WBC UA 0-5 None Seen, 0-5 /HPF 08/08/2021 10:25 AM [facility] Squamous Epithelial Cells UA None Seen None Seen, 0-2, 3-5 /HPF 08/08/2021 10:25 AM [facility] Urine URINE SPECIMEN OBTAINED BY CLEAN CATCH PROCEDURE / Unknown Collection / Unknown 08/08/2021 10:05 AM CDT 08/08/2021 10:[address] [facility] - 08/08/2021 10:25 AM [facility] NAMED [facility] Nicki Marvin MD LAB - URINALYSI S ORDERABLES [facility] [address] [place] [phone], [facility] [phone] * (ABNORMAL) URINE DRUG SCREEN IMMUNOASSAY (08/08/2021 10:05 AM [facility] NAMED [facility]) [facility] Amphetamines Screen Urine Negative Negative : < 1000 ng/mL 08/08/2021 10:27 AM [facility] Barbiturates Screen Urine Negative Negative : < 200 ng/mL 08/08/2021 10:27 AM [facility] Benzodiazepine Screen Urine Negative Negative : < 200 ng/mL 08/08/2021 10:27 AM [facility] Opiates Urine Positive(A) Negative : < 300 ng/mL 08/08/2021 10:27 AM [facility] Comment:Positive urine opiat e screening results should be confirmed by another generally accepted non-immunological method such as gas chromatography or mass spectrometry. Cocaine Metabolites Urine Negative Negative : < 300 ng/mL 08/08/2021 10:27 AM [facility] Phencyclidine Screen Urine Negative Negative : < 25 ng/ml 08/08/2021 10:27 AM [facility] Cannabinoids Screen Urine Positive(A) Negative : <50 ng/mL 08/08/2021 10:27 AM [facility] Comment:Positive urine canna binoids (THC) screening results should be confirmed by another generally accepted non-immunological method such as gas chromatography or mass spectrometry. Methadone Screen Urine Negative Negative : < 300 ng/mL 08/08/2021 10:27 AM [facility] Fentanyl Screen Urine Negative Negative : <1.0 ng/mL 08/08/2021 10:27 AM [facility] Urine URINE / Unknown Collection / Unknown 08/08/2021 10:05 AM T 08/08/2021 10:[address] [facility] - 08/08/2021 10:27 AM [facility] NAMED [facility] The Urine Toxicology Screening Panel does not screen for Propoxyphene, Meprobamate, Carisoprodol, Trazodone, klfc-dtf-edftalz medications and/or volatiles (Acetone, Isopropanol, Methanol or Ethylene Glycol). Ethanol, Salicylate, Acetaminophen, Tricyclic Antidepressants and several therapeutic drugs may be individually assayed in serum or plasma specimen. Toxicology testing by the [facility] is an aid to medical diagnosis and treatment of patients. No documented chain of custody was maintained. Results are intended to be used for clinical purposes only. Annemarie Ye MD LAB - URINE CHEMISTR Y ORDERABLES [facility] [address] [place] [phone], [facility] [phone] * TYPE + SCREEN PANEL (08/08/2021 9:25 AM CDT) [facility] Antibody Screen NEG 10:11 AM CDT [facility] ABO Rh A POS 08/08/2021 10:11 AM CDT [facility] Blood Bank BLOOD SPECIMEN / Unknown Venipuncture / Unknown 08/08/2021 9:25 AM CDT 08/08/2021 9:32 AM CDT Nicki Marvin MD LAB - BLOOD BAN K ORDERABLES Performing Organization Address [facility]/ZIP Co de Phone Number [facility] [address] [place] [phone], [place] [phone] * TEG 6 GLOBAL HEMOSTASIS W/ LYSIS (08/08/2021 9:01 AM CDT) [facility] Citrated Kaolin R (Reaction Time) 5.4 4.6 - 9.1 min 08/08/2021 10:20 AM CDT [facility] Citrated Kaolin LY30 (Lysis) 0.2 0.0 - 2.6 % 08/08/2021 10:20 AM CDT [facility] Citrated RapidTEG MA (Max Amplitude) 54.1 52.0 - 70.0 mm 08/08/2021 10:20 AM CDT [facility] Citrated Functional Fibrinogen MA (Max Amplitude) 17.3 15.0 - 32.0 mm 08/08/2021 10:20 AM CDT [facility] Blood BLOOD SPECIMEN / Unknown Venipuncture / Unknown 08/08/2021 9:01 AM CDT 08/08/2021 9:13 AM CDT Nicki Marvin MD LAB - HEMATOLOG Y ORDERABLES Performing Organization Address City/[facility]/ZIP Co de Phone Number [address] [address], [place] [phone] * (ABNORMAL) TEG 6S PLATELET MAPPING (08/08/2021 9:01 AM CDT) TEGPLM (Max Amplitude) Koalin 56 53 - 68 mm 08/08/2021 10:05 AM CDT [facility] TEGPLM (Max Amplitude) ACTF 6 2 - 19 mm 08/08/2021 10:05 AM CDT [facility] TEGPLM (Max Amplitude) ADP 17(L) 45 - 69 mm 08/08/2021 10:05 AM CDT [facility] TEGPLM (Max Amplitude) AA 15(L) 51 - 71 mm 08/08/2021 10:05 [facility] %Inhibition ADP 77(H) 0 - 17 % 08/08/2021 10:05 AM T [facility] TEGPLM %Inhibition AA 81(H) 0 - 11 % 08/08/2021 10:05 AM T [facility] TEGPLM %Aggregation ADP 23(L) 83 - 100 % 08/08/2021 10:05 AM T [facility] TEGPLM % Aggregation AA 19(L) 89 - 100 % 08/08/2021 10:05 AM [facility] Blood BLOOD SPECIMEN / Unknown Venipuncture / Unknown 08/08/2021 9:01 AM CDT 08/08/2021 9:14 AM CDT Nicki Marvin MD LAB - HEMATOLOG Y ORDERABLES Performing Organization Address [facility] Co de Phone Number [address] [address], [facility] [phone] * BLOOD TYPE VERIFICATION (08/08/2021 9:01 AM CDT) ABO Rh A POS 08/08/2021 10:11 AM CDT [facility] Blood Bank BLOOD SPECIMEN / Unknown 08/08/2021 9:01 AM CDT 08/08/2021 9:33 AM CDT Provider Unknown LAB - BLOOD BANK ORD ERABLES [facility] [address] [place] [address], [facility] [phone] * LIPASE BLOOD (08/08/2021 9:01 AM CDT) Lipase 21 8 - 78 U/L 08/08/2021 9:41 AM CDT [facility] Blood BLOOD SPECIMEN / Unknown Venipuncture / Unknown 08/08/2021 9:01 AM CDT 08/08/2021 9:13 AM CDT Nicki Marvin MD LAB - CHEMISTRY ORDERABLES Performing Organization Address [facility] Co de Phone Number [facility] [address] [place] [id number], [facility] [phone] * AMYLASE BLOOD (08/08/2021 9:01 AM CDT) Amylase 80 25 - 125 U/L 08/08/2021 9:41 AM CDT [facility] Blood BLOOD SPECIMEN / Unknown Venipuncture / Unknown 08/08/2021 9:01 AM CDT 08/08/2021 9:13 AM CDT Nicki Marvin MD LAB - CHEMISTRY ORDERABLES Performing Organization Address [facility] Co de Phone Number [address] [address], [facility] [phone] * XR CHEST 1VW PORTABLE (08/08/2021 8:46 AM CDT) Anatomical Region Laterality Modality Chest Radiographic Janna ging 08/08/2021 8:54 AM CDT Impressions 08/08/2021 9:58 AM CDT FINDINGS/IMPRESSION: A cervical collar is in place. Lung volumes are low. There are patchy interstitial and airspace opacities in both lungs, may represent atelectasis and/or airspace disease/aspiration or pulmonary contusions in the setting of trauma. An aortic valve prosthesis is noted. The cardiomediastinal silhouette is normal. The visible bony thorax is intact. Dictated by Noah España MD (residential glazier). Dr. NIEVES Doss have personally reviewed and interpreted this examination/study. This report was electronically signed by NIEVES DURÁN on 08/08/2021 9:58 AM . Narrative 08/08/2021 9:58 AM CDT EXAMINATION: XR CHEST 1VW PORTABLE HISTORY: M54.2: Neck pain COMPARISON: No prior study is available for comparison. Procedure Note Nieves Durán MD - 08/08/2021 EXAMINATION: XR CHEST 1VW PORTABLE HISTORY: M54.2: Neck pain COMPARISON: No prior study is available for comparison. FINDINGS/IMPRESSION: A cervical collar is in place. Lung volumes are low. There are patchy interstitial and airspaceopacities in both lungs, may represent atelectasis and/or airspace disease/aspiration or pulmonary contusions in the setting of trauma. An aortic valve prosthesis is noted. The cardiomediastinal silhouette is normal. The visible bony thorax is intact. Dictated by Noah España MD (residential glazier). Dr. NIEVES Doss have personally reviewed and interpreted this examination/study. This report was electronically signed by NIEVES DURÁN on 29:58 AM . Nicki Marvin MD DIAGNOSTIC IMAG ING ORDERABLES * Laceration Repair (08/08/2021 5:39 AM CDT) Narrative Annemarie Ye MD - 08/08/2021 5:39 AM CDT Ryder Holloway MD 08/08/2021 5:44 AM Laceration Repair Date/Time: 08/08/2021 5:39 AM Performed by: Ryder Holloway MD Authorized by: Annemarie Ye MD Consent: Consent obtained: Verbal Consent given by: Patient Risks discussed: Infection, pain, poor cosmetic result and poor wound healing Alternatives discussed: No treatment [place] protocol: Patient identity confirmed: Verbally with patient Anesthesia: Anesthesia method: Local infiltration Local anesthetic: Lidocaine 1% w/o epi Laceration details: Location: Scalp Scalp location: Occipital Length (cm): 5 Pre-procedure details: Preparation: Imaging obtained to evaluate for foreign bodies and patient was prepped and draped in usual sterile fashion Exploration: Limited defect created (wound extended): no Imaging obtained comment: CT head Imaging outcome: foreign body not noted Wound exploration: entire depth of wound visualized Wound extent: no underlying fracture noted Contaminated: no Treatment: Area cleansed with: Saline Amount of cleaning: Standard Irrigation solution: Sterile saline Irrigation volume: 1000 Irrigation method: Pressure wash Visualized foreign bodies/material removed: no Debridement: None Undermining: None Scar revision: no Skin repair: Repair method: Eva Number of eva: 8 Approximation: Approximation: Close Repair type: Repair type: Simple Post-procedure details: Dressing: Open (no dressing) Procedure completion: Tolerated well, no immediate complications Comments: Dr. Annemarie Ye was available for all critical portions of the procedure Annemarie Ye MD PROCEDURE/MINOR SURG ICAL ORDERABLES * CT CHEST ABDOMEN PELVIS W CONT (08/08/2021 4:49 AM CDT) Anatomical Region Laterality Modality Chest, Abdomen, Pelvis Computed Tomography 08/08/2021 4:49 AM CDT Impressions 08/08/2021 9:24 AM CDT Impression: 1.No acute visceral, vascular, or osseus injury identified in the chest, abdomen, or pelvis. 2.Cardiomegaly. 3.Mild bladder wall thickening may be secondary to incompletely distended state. 4.Mild prostatomegaly. Report drafted by Gretta Lora (resident) IDr. Mike M.D. have personally reviewed and interpreted this examination/study. This report was electronically signed by Mike CLAROS M.D. on 08/08/2021 9:24 AM . Narrative 08/08/2021 9:24 AM CDT Procedure Information DATE: 08/08/2021 4:49 AM EXAMINATION: Computed tomography (CT) of the chest, abdomen, and pelvis with contrast TECHNIQUE: CT of the chest, abdomen, and pelvis was performed after the uneventful administration of 100 mL of Isovue 370 intravenous contrast according to standard protocol. Clinical Information HISTORY: W19.XXXA: Fall, initial encounter COMPARISON: None. Findings Chest: Lines/Tubes: None. Lower neck and axillae: Normal. Mediastinum and Harleen: No enlarged lymph nodes are present. Heart and Pericardium: The heart is enlarged. A mitral valve prosthesis is present. There is no pericardial effusion. Lung Parenchyma, Airways, and Pleural Spaces: There is bibasilar atelectasis. There is no pleural effusion or pneumothorax. Abdomen/pelvis: Hepatobiliary: The liver and gallbladder are normal. Pancreas: Normal. Spleen: Normal. Kidneys: Subcentimeter hypodensity in the left kidney is too small to characterize but may represent a cyst. There is a 5.0 cm cyst in the right kidney. Adrenals: Normal. Retroperitoneum/peritoneum: There is no mesenteric or retroperitoneal hemorrhage. No free air or free fluid is present. Gastrointestinal: The stomach and visualized loops of bowel are unremarkable. The appendix is normal. Pelvic Structures: The bladder is partially distended with mild wall thickening which may be due to incompletely distended state. The prostate appears enlarged. There is no free pelvic fluid. Vasculature: The abdominal aorta is mildly tortuous. There is no vascular injury. Bones: Chronic left inferior pubic ramus fracture. There are mild multilevel degenerative changes in the spine. Mild deformity of the right fifth rib likely from prior injury. Soft tissues: Gynecomastia is present. Metallic densities are noted in the right chest wall. An umbilical hernia is present. There is diastases recti. Procedure Note Vy Claros MD - 08/08/2021 Procedure Information DATE: 08/08/2021 4:49 AM EXAMINATION: Computed tomography (CT) of the chest, abdomen, and pelvis with contrast TECHNIQUE: CT of the chest, abdomen, and pelvis was performed after the uneventful administration of 100 mL of Isovue 370 intravenous contrast according to standard protocol. Clinical Information HISTORY: W19.XXXA: Fall, initial encounter COMPARISON: None. Findings Chest: Lines/Tubes: None. Lower neck and axillae: Normal. Mediastinum and Harleen: No enlarged lymph nodes are present. Heart and Pericardium: The heart is enlarged. A mitral valve prosthesis is present. There is no pericardial effusion. Lung Parenchyma, Airways, and Pleural Spaces: There is bibasilar atelectasis. There is no pleural effusion or pneumothorax. Abdomen/pelvis: Hepatobiliary: The liver and gallbladder are normal. Pancreas: Normal. Spleen: Normal. Kidneys: Subcentimeter hypodensity in the left kidney is too small tocharacterize but may represent a cyst. There is a 5.0 cm cyst in the right kidney. Adrenals: Normal. Retroperitoneum/peritoneum: There is no mesenteric or retroperitoneal hemorrhage. No free air orfree fluid is present. Gastrointestinal: The stomach and visualized loops of bowel are unremarkable. The appendix is normal. Pelvic Structures: The bladder is partially distended with mild wall thickening which maybe due to incompletely distended state. The prostate appears enlarged.There is no free pelvic fluid. Vasculature: The abdominal aorta is mildly tortuous. There is no vascular injury. Bones: Chronic left inferior pubic ramus fracture. There are mild multilevel degenerative changes in the spine. Mild deformity of the right fifth rib likely from prior injury. Soft tissues: Gynecomastia is present. Metallic densities are noted in the right chest wall. An umbilical hernia is present. There is diastases recti. Impression: 1.No acute visceral, vascular, or osseus injury identified in the chest, abdomen, or pelvis. 2.Cardiomegaly. 3.Mild bladder wall thickening may be secondary to incompletelydistended state. 4.Mild prostatomegaly. Report drafted by Gretta Lora (resident) Dr. Mike Doss M.D. have personally reviewed and interpretedthis examination/study. This report was electronically signed by Mike CLAROS M.D. on 08/08/2021 9:24 AM . Annemarie Ye MD CT ORDERABLES * CT LUMBAR SPINE WO CONTRAST (08/08/2021 4:49 AM CDT) Anatomical Region Laterality Modality Spine Computed Tomogra phy 08/08/2021 8:10 AM CDT Impressions 08/08/2021 11:46 AM CDT IMPRESSION: 1.Acute left subdural hematoma measuring approximately 9 mm in maximal thickness with mild mass effect on the adjacent cerebral sulci. No midline shift. 2.Small volume subarachnoid hemorrhage in the left frontal lobe. 3.No evidence of acute fracture in the cervical, thoracic, or lumbar spine. Please refer to the separately dictated report of CT scan of the chest, abdomen and pelvis for intrathoracic and intra-abdominal findings. This report was approved by Paolo Vázquez on 08/08/2021 11:46 AM . I, Dr. DONNIE MURPHY have personally reviewed and interpreted this examination/study. This report was electronically signed by DONNIE MURPHY on 08/08/2021 11:46 AM . Narrative 08/08/2021 11:[address] HEAD WO CONTRAST, CT LUMBAR SPINE WO CONTRAST, CT THORACIC SPINE WO CONTRAST, CT CERVICAL SPINE WO CONTRAST DATE: 08/08/2021 3:56 AM EXAMINATION: 1.Computed tomography (CT) of the head without contrast 2.CT of the cervical spine without contrast 3.CT of the thoracic spine without contrast 4.CT of the lumbar spine without contrast HISTORY: S09.90XA: Injury of head, initial encounter TECHNIQUE: CT of the head and cervical spine was performed without contrast according to standard protocol. Reformatted axial, sagittal, and coronal images of the thoracic and lumbar spine were obtained by the technologist from a concurrently performed body CT and sent to the workstation for review. COMPARISON: No prior study is available for comparison at the time of this dictation. FINDINGS: Head: Acute subdural hematoma along the left frontoparietal convexity measuring up to 9 mm maximal thickness, (series 7, image 55).. There is extension along the left paramedian posterior falx. There is mild compression and mass effect of the underlying cerebral sulci. A small volume of subarachnoid hemorrhage is noted in the left frontal lobe. There is mild cerebral and cerebellar volume loss with associated ex vacuo ventricular dilatation. The basilar cisterns are patent. No significant midline shift is seen. The guan-white matter differentiation is normal. Suspected minimal white matter hypoattenuation is indicative of chronic small vessel ischemic disease. There is trace vascular calcification of the carotid siphons. No acute calvarial fracture is identified. Other than bilateral cataract extractions, the orbits appear normal. There is mild paranasal sinus disease. The mastoid air cells are clear. No soft tissue abnormality is identified. Soft tissue swelling/hematoma along the left occipital scalp with overlaying skin lacerations. Cervical spine: Related straightening of the cervical lordosis. Mild levocurvature of the cervical spine. The alignment is otherwise maintained. Vertebral bodies are normal in height without evidence of acute fracture. Other than middle atlantoaxial joint osteoarthritis, the craniocervical junction appears normal. There is advanced degenerative disc disease. Multilevel disc-osteophyte complexes. Mild multilevel central canal stenosis is seen. There are varying degrees of mild facet osteoarthritis. There are varying degrees of mild to advanced uncovertebral joint osteoarthritis with the same degree of neural foraminal stenosis at these levels. No soft tissue abnormality is identified. Thoracic spine: The alignment is normal. Vertebral bodies are normal in height without evidence of acute fracture. The intervertebral discs appear normal. No central canal stenosis is seen. The facets appear normal. No neural foraminal stenosis is seen. No soft tissue abnormality is identified. Lumbar spine: Mild levocurvature of the lumbar spine. The alignment is otherwise maintained. Vertebral bodies are normal in height without evidence of acute fracture. There is diffuse disc bulge at multiple levels. No high-grade central canal stenosis is seen. There is mild facet osteoarthritis at multiple levels. There are varying degrees of neural foraminal stenosis at multiple levels. There is a 5.3 x 4.2 cm exophytic right renal cyst. Procedure Note Donnie Murphy MD - 08/08/2021 CT HEAD WO CONTRAST, CT LUMBAR SPINE WO CONTRAST, CT THORACIC SPINE WO CONTRAST, CT CERVICAL SPINE WO CONTRAST DATE: 08/08/2021 3:56 AM EXAMINATION: 1.Computed tomography (CT) of the head without contrast 2.CT of the cervical spine without contrast 3.CT of the thoracic spine without contrast 4.CT of the lumbar spine without contrast HISTORY: S09.90XA: Injury of head, initial encounter TECHNIQUE: CT of the head and cervical spine was performed without contrast according to standard protocol. Reformatted axial, sagittal,and coronal images of the thoracic and lumbar spine were obtained by the technologist from a concurrently performed body CT and sent to the workstation for review. COMPARISON: No prior study is available for comparison at the time ofthis dictation. FINDINGS: Head: Acute subdural hematoma along the left frontoparietal convexitymeasuring up to 9 mm maximal thickness, (series 7, image 55).. There is extension along the left paramedian posterior falx. There is mild compression and mass effect of the underlying cerebral sulci. A small volume of subarachnoid hemorrhage is noted in the left frontal lobe. There is mild cerebral and cerebellar volume loss with associated ex vacuo ventricular dilatation. The basilar cisterns are patent. No significant midlineshift is seen. The guan-white matter differentiation is normal. Suspected minimal white matter hypoattenuation is indicative of chronic smallvessel ischemic disease. There is trace vascular calcification of the carotid siphons. No acute calvarial fracture is identified. Other than bilateral cataract extractions, the orbits appear normal. There is mild paranasal sinus disease. The mastoid air cells are clear. No soft tissueabnormality is identified. Soft tissue swelling/hematoma along the left occipital scalp with overlaying skin lacerations. Cervical spine: Related straightening of the cervical lordosis. Mild levocurvature ofthe cervical spine. The alignment is otherwise maintained. Vertebral bodies are normal in height without evidence of acute fracture. Other thanmiddle atlantoaxial joint osteoarthritis, the craniocervical junction appears normal. There is advanced degenerative disc disease. Multilevel disc-osteophyte complexes. Mild multilevel central canal stenosis isseen. There are varying degrees of mild facet osteoarthritis. There arevarying degrees of mild to advanced uncovertebral joint osteoarthritis with the same degree of neural foraminal stenosis at these levels. No soft tissue abnormality is identified. Thoracic spine: The alignment is normal. Vertebral bodies are normal in height without evidence of acute fracture. The intervertebral discs appear normal. No central canal stenosis is seen. The facets appear normal. No neural foraminal stenosis is seen. No soft tissue abnormality is identified. Lumbar spine: Mild levocurvature of the lumbar spine. The alignment is otherwise maintained. Vertebral bodies are normal in height without evidence of acute fracture. There is diffuse disc bulge at multiple levels. No high-grade central canal stenosis is seen. There is mild facet osteoarthritis at multiple levels. There are varying degrees of neural foraminal stenosis at multiple levels. There is a 5.3 x 4.2 cm exophytic right renal cyst. IMPRESSION: 1.Acute left subdural hematoma measuring approximately 9 mm in maximal thickness with mild mass effect on the adjacent cerebral sulci. Nomidline shift. 2.Small volume subarachnoid hemorrhage in the left frontal lobe. 3.No evidence of acute fracture in the cervical, thoracic, or lumbarspine. Please refer to the separately dictated report of CT scan of the chest, abdomen and pelvis for intrathoracic and intra-abdominal findings. This report was approved by Paolo Vázquez on 08/08/2021 11:[address] DONNIE Doss have personally reviewed and interpreted this examination/study. This report was electronically signed by DONNIE MURPHY on08/08/2021 11:46 AM . Annemarie Ye MD CT ORDERABLES * CT THORACIC SPINE WO CONTRAST (08/08/2021 4:49 AM CDT) Anatomical Region Laterality Modality Spine Computed Tomogra phy 08/08/2021 8:10 AM CDT Impressions 08/08/2021 11:46 AM CDT IMPRESSION: 1.Acute left subdural hematoma measuring approximately 9 mm in maximal thickness with mild mass effect on the adjacent cerebral sulci. No midline shift. 2.Small volume subarachnoid hemorrhage in the left frontal lobe. 3.No evidence of acute fracture in the cervical, thoracic, or lumbar spine. Please refer to the separately dictated report of CT scan of the chest, abdomen and pelvis for intrathoracic and intra-abdominal findings. This report was approved by Paolo Vázquez on 08/08/2021 11:46 AM . IDr. DONNIE have personally reviewed and interpreted this examination/study. This report was electronically signed by DONNIE MURPHY on 08/08/2021 11:46 AM . Narrative 08/08/2021 11:[address] HEAD WO CONTRAST, CT LUMBAR SPINE WO CONTRAST, CT THORACIC SPINE WO CONTRAST, CT CERVICAL SPINE WO CONTRAST DATE: 08/08/2021 3:56 AM EXAMINATION: 1.Computed tomography (CT) of the head without contrast 2.CT of the cervical spine without contrast 3.CT of the thoracic spine without contrast 4.CT of the lumbar spine without contrast HISTORY: S09.90XA: Injury of head, initial encounter TECHNIQUE: CT of the head and cervical spine was performed without contrast according to standard protocol. Reformatted axial, sagittal, and coronal images of the thoracic and lumbar spine were obtained by the technologist from a concurrently performed body CT and sent to the workstation for review. COMPARISON: No prior study is available for comparison at the time of this dictation. FINDINGS: Head: Acute subdural hematoma along the left frontoparietal convexity measuring up to 9 mm maximal thickness, (series 7, image 55).. There is extension along the left paramedian posterior falx. There is mild compression and mass effect of the underlying cerebral sulci. A small volume of subarachnoid hemorrhage is noted in the left frontal lobe. There is mild cerebral and cerebellar volume loss with associated ex vacuo ventricular dilatation. The basilar cisterns are patent. No significant midline shift is seen. The guan-white matter differentiation is normal. Suspected minimal white matter hypoattenuation is indicative of chronic small vessel ischemic disease. There is trace vascular calcification of the carotid siphons. No acute calvarial fracture is identified. Other than bilateral cataract extractions, the orbits appear normal. There is mild paranasal sinus disease. The mastoid air cells are clear. No soft tissue abnormality is identified. Soft tissue swelling/hematoma along the left occipital scalp with overlaying skin lacerations. Cervical spine: Related straightening of the cervical lordosis. Mild levocurvature of the cervical spine. The alignment is otherwise maintained. Vertebral bodies are normal in height without evidence of acute fracture. Other than middle atlantoaxial joint osteoarthritis, the craniocervical junction appears normal. There is advanced degenerative disc disease. Multilevel disc-osteophyte complexes. Mild multilevel central canal stenosis is seen. There are varying degrees of mild facet osteoarthritis. There are varying degrees of mild to advanced uncovertebral joint osteoarthritis with the same degree of neural foraminal stenosis at these levels. No soft tissue abnormality is identified. Thoracic spine: The alignment is normal. Vertebral bodies are normal in height without evidence of acute fracture. The intervertebral discs appear normal. No central canal stenosis is seen. The facets appear normal. No neural foraminal stenosis is seen. No soft tissue abnormality is identified. Lumbar spine: Mild levocurvature of the lumbar spine. The alignment is otherwise maintained. Vertebral bodies are normal in height without evidence of acute fracture. There is diffuse disc bulge at multiple levels. No high-grade central canal stenosis is seen. There is mild facet osteoarthritis at multiple levels. There are varying degrees of neural foraminal stenosis at multiple levels. There is a 5.3 x 4.2 cm exophytic right renal cyst. Procedure Note Donnie Murphy MD - 08/08/2021 CT HEAD WO CONTRAST, CT LUMBAR SPINE WO CONTRAST, CT THORACIC SPINE WO CONTRAST, CT CERVICAL SPINE WO CONTRAST DATE: 08/08/2021 3:56 AM EXAMINATION: 1.Computed tomography (CT) of the head without contrast 2.CT of the cervical spine without contrast 3.CT of the thoracic spine without contrast 4.CT of the lumbar spine without contrast HISTORY: S09.90XA: Injury of head, initial encounter TECHNIQUE: CT of the head and cervical spine was performed without contrast according to standard protocol. Reformatted axial, sagittal,and coronal images of the thoracic and lumbar spine were obtained by the technologist from a concurrently performed body CT and sent to the workstation for review. COMPARISON: No prior study is available for comparison at the time ofthis dictation. FINDINGS: Head: Acute subdural hematoma along the left frontoparietal convexitymeasuring up to 9 mm maximal thickness, (series 7, image 55).. There is extension along the left paramedian posterior falx. There is mild compression and mass effect of the underlying cerebral sulci. A small volume of subarachnoid hemorrhage is noted in the left frontal lobe. There is mild cerebral and cerebellar volume loss with associated ex vacuo ventricular dilatation. The basilar cisterns are patent. No significant midlineshift is seen. The guan-white matter differentiation is normal. Suspected minimal white matter hypoattenuation is indicative of chronic smallvessel ischemic disease. There is trace vascular calcification of the carotid siphons. No acute calvarial fracture is identified. Other than bilateral cataract extractions, the orbits appear normal. There is mild paranasal sinus disease. The mastoid air cells are clear. No soft tissueabnormality is identified. Soft tissue swelling/hematoma along the left occipital scalp with overlaying skin lacerations. Cervical spine: Related straightening of the cervical lordosis. Mild levocurvature ofthe cervical spine. The alignment is otherwise maintained. Vertebral bodies are normal in height without evidence of acute fracture. Other thanmiddle atlantoaxial joint osteoarthritis, the craniocervical junction appears normal. There is advanced degenerative disc disease. Multilevel disc-osteophyte complexes. Mild multilevel central canal stenosis isseen. There are varying degrees of mild facet osteoarthritis. There arevarying degrees of mild to advanced uncovertebral joint osteoarthritis with the same degree of neural foraminal stenosis at these levels. No soft tissue abnormality is identified. Thoracic spine: The alignment is normal. Vertebral bodies are normal in height without evidence of acute fracture. The intervertebral discs appear normal. No central canal stenosis is seen. The facets appear normal. No neural foraminal stenosis is seen. No soft tissue abnormality is identified. Lumbar spine: Mild levocurvature of the lumbar spine. The alignment is otherwise maintained. Vertebral bodies are normal in height without evidence of acute fracture. There is diffuse disc bulge at multiple levels. No high-grade central canal stenosis is seen. There is mild facet osteoarthritis at multiple levels. There are varying degrees of neural foraminal stenosis at multiple levels. There is a 5.3 x 4.2 cm exophytic right renal cyst. IMPRESSION: 1.Acute left subdural hematoma measuring approximately 9 mm in maximal thickness with mild mass effect on the adjacent cerebral sulci. Nomidline shift. 2.Small volume subarachnoid hemorrhage in the left frontal lobe. 3.No evidence of acute fracture in the cervical, thoracic, or lumbarspine. Please refer to the separately dictated report of CT scan of the chest, abdomen and pelvis for intrathoracic and intra-abdominal findings. This report was approved by Paolo Vázquez on 08/08/2021 11:[address] DONNIE Doss have personally reviewed and interpreted this examination/study. This report was electronically signed by DONNIE MURPHY on08/08/2021 11:46 AM . Annemarie Ye MD CT ORDERABLES * CT CERVICAL SPINE WO CONTRAST (08/08/2021 3:53 AM CDT) Anatomical Region Laterality Modality Spine Computed Tomogra phy 08/08/2021 8:10 AM CDT Impressions 08/08/2021 11:46 AM CDT IMPRESSION: 1.Acute left subdural hematoma measuring approximately 9 mm in maximal thickness with mild mass effect on the adjacent cerebral sulci. No midline shift. 2.Small volume subarachnoid hemorrhage in the left frontal lobe. 3.No evidence of acute fracture in the cervical, thoracic, or lumbar spine. Please refer to the separately dictated report of CT scan of the chest, abdomen and pelvis for intrathoracic and intra-abdominal findings. This report was approved by Paolo Vázquez on 08/08/2021 11:[address] DONNIE Doss have personally reviewed and interpreted this examination/study. This report was electronically signed by DONNIE MURPHY on 08/08/2021 11:46 AM . Narrative 08/08/2021 11:[address] HEAD WO CONTRAST, CT LUMBAR SPINE WO CONTRAST, CT THORACIC SPINE WO CONTRAST, CT CERVICAL SPINE WO CONTRAST DATE: 08/08/2021 3:56 AM EXAMINATION: 1.Computed tomography (CT) of the head without contrast 2.CT of the cervical spine without contrast 3.CT of the thoracic spine without contrast 4.CT of the lumbar spine without contrast HISTORY: S09.90XA: Injury of head, initial encounter TECHNIQUE: CT of the head and cervical spine was performed without contrast according to standard protocol. Reformatted axial, sagittal, and coronal images of the thoracic and lumbar spine were obtained by the technologist from a concurrently performed body CT and sent to the workstation for review. COMPARISON: No prior study is available for comparison at the time of this dictation. FINDINGS: Head: Acute subdural hematoma along the left frontoparietal convexity measuring up to 9 mm maximal thickness, (series 7, image 55).. There is extension along the left paramedian posterior falx. There is mild compression and mass effect of the underlying cerebral sulci. A small volume of subarachnoid hemorrhage is noted in the left frontal lobe. There is mild cerebral and cerebellar volume loss with associated ex vacuo ventricular dilatation. The basilar cisterns are patent. No significant midline shift is seen. The guan-white matter differentiation is normal. Suspected minimal white matter hypoattenuation is indicative of chronic small vessel ischemic disease. There is trace vascular calcification of the carotid siphons. No acute calvarial fracture is identified. Other than bilateral cataract extractions, the orbits appear normal. There is mild paranasal sinus disease. The mastoid air cells are clear. No soft tissue abnormality is identified. Soft tissue swelling/hematoma along the left occipital scalp with overlaying skin lacerations. Cervical spine: Related straightening of the cervical lordosis. Mild levocurvature of the cervical spine. The alignment is otherwise maintained. Vertebral bodies are normal in height without evidence of acute fracture. Other than middle atlantoaxial joint osteoarthritis, the craniocervical junction appears normal. There is advanced degenerative disc disease. Multilevel disc-osteophyte complexes. Mild multilevel central canal stenosis is seen. There are varying degrees of mild facet osteoarthritis. There are varying degrees of mild to advanced uncovertebral joint osteoarthritis with the same degree of neural foraminal stenosis at these levels. No soft tissue abnormality is identified. Thoracic spine: The alignment is normal. Vertebral bodies are normal in height without evidence of acute fracture. The intervertebral discs appear normal. No central canal stenosis is seen. The facets appear normal. No neural foraminal stenosis is seen. No soft tissue abnormality is identified. Lumbar spine: Mild levocurvature of the lumbar spine. The alignment is otherwise maintained. Vertebral bodies are normal in height without evidence of acute fracture. There is diffuse disc bulge at multiple levels. No high-grade central canal stenosis is seen. There is mild facet osteoarthritis at multiple levels. There are varying degrees of neural foraminal stenosis at multiple levels. There is a 5.3 x 4.2 cm exophytic right renal cyst. Procedure Note Donnie Murphy MD - 08/08/2021 CT HEAD WO CONTRAST, CT LUMBAR SPINE WO CONTRAST, CT THORACIC SPINE WO CONTRAST, CT CERVICAL SPINE WO CONTRAST DATE: 08/08/2021 3:56 AM EXAMINATION: 1.Computed tomography (CT) of the head without contrast 2.CT of the cervical spine without contrast 3.CT of the thoracic spine without contrast 4.CT of the lumbar spine without contrast HISTORY: S09.90XA: Injury of head, initial encounter TECHNIQUE: CT of the head and cervical spine was performed without contrast according to standard protocol. Reformatted axial, sagittal,and coronal images of the thoracic and lumbar spine were obtained by the technologist from a concurrently performed body CT and sent to the workstation for review. COMPARISON: No prior study is available for comparison at the time ofthis dictation. FINDINGS: Head: Acute subdural hematoma along the left frontoparietal convexitymeasuring up to 9 mm maximal thickness, (series 7, image 55).. There is extension along the left paramedian posterior falx. There is mild compression and mass effect of the underlying cerebral sulci. A small volume of subarachnoid hemorrhage is noted in the left frontal lobe. There is mild cerebral and cerebellar volume loss with associated ex vacuo ventricular dilatation. The basilar cisterns are patent. No significant midlineshift is seen. The guan-white matter differentiation is normal. Suspected minimal white matter hypoattenuation is indicative of chronic smallvessel ischemic disease. There is trace vascular calcification of the carotid siphons. No acute calvarial fracture is identified. Other than bilateral cataract extractions, the orbits appear normal. There is mild paranasal sinus disease. The mastoid air cells are clear. No soft tissueabnormality is identified. Soft tissue swelling/hematoma along the left occipital scalp with overlaying skin lacerations. Cervical spine: Related straightening of the cervical lordosis. Mild levocurvature ofthe cervical spine. The alignment is otherwise maintained. Vertebral bodies are normal in height without evidence of acute fracture. Other thanmiddle atlantoaxial joint osteoarthritis, the craniocervical junction appears normal. There is advanced degenerative disc disease. Multilevel disc-osteophyte complexes. Mild multilevel central canal stenosis isseen. There are varying degrees of mild facet osteoarthritis. There arevarying degrees of mild to advanced uncovertebral joint osteoarthritis with the same degree of neural foraminal stenosis at these levels. No soft tissue abnormality is identified. Thoracic spine: The alignment is normal. Vertebral bodies are normal in height without evidence of acute fracture. The intervertebral discs appear normal. No central canal stenosis is seen. The facets appear normal. No neural foraminal stenosis is seen. No soft tissue abnormality is identified. Lumbar spine: Mild levocurvature of the lumbar spine. The alignment is otherwise maintained. Vertebral bodies are normal in height without evidence of acute fracture. There is diffuse disc bulge at multiple levels. No high-grade central canal stenosis is seen. There is mild facet osteoarthritis at multiple levels. There are varying degrees of neural foraminal stenosis at multiple levels. There is a 5.3 x 4.2 cm exophytic right renal cyst. IMPRESSION: 1.Acute left subdural hematoma measuring approximately 9 mm in maximal thickness with mild mass effect on the adjacent cerebral sulci. Nomidline shift. 2.Small volume subarachnoid hemorrhage in the left frontal lobe. 3.No evidence of acute fracture in the cervical, thoracic, or lumbarspine. Please refer to the separately dictated report of CT scan of the chest, abdomen and pelvis for intrathoracic and intra-abdominal findings. This report was approved by Paolo Vázquez on 08/08/2021 11:46 AM . IDr. DONNIE have personally reviewed and interpreted this examination/study. This report was electronically signed by DONNIE MURPHY on08/08/2021 11:46 AM . Annemarie Ye MD CT ORDERABLES * EKG 12-LEAD (08/08/2021 3:27 AM CDT) Ventricular Rate 83 BPM [facility] MUSE Atrial Rate 83 BPM [facility] P-R Interval 210 ms [facility] QRS Duration ms 110 ms [facility] Q-T Interval ms 388 ms [facility] QTC Calculation (Bezet) 455 ms [facility] M[facility] Calculated P [place] 57 degrees [facility] Calculated R [place] 4 degrees [facility] Calculated T [place] 32 degrees [facility] Interpretation EKG SINUS RHYTHM WITH 1ST DEGREE A-V BLOCK INCOMPLETE RIGHT BUNDLE BRANCH BLOCK BORDERLINE ECG NO PREVIOUS ECGS AVAILABLE Confirmed by Cisco Marquez ([id number]) on 08/09/2021 5:13:30 PM [facility] 08/08/2021 3:27 AM CDT 08/09/2021 5:13 PM CDT Annemarie Ye MD ECG ORDERABLES Performing Organization Address [facility] [place]/[facility] Co de Phone Number [facility] * PT-INR [facility] (08/08/2021 3:07 AM CDT) Pathologist [facility] PT 13.1 12.1 - 14.8 Seconds 08/08/2021 3:31 AM CDT [facility] INR 1.0 See Comment 08/08/2021 3:31 AM CDT [facility] Comment:The suggested therap eutic range for standard coumadin (warfarin) therapy is an INR of 2.0-3.0. For high-risk patients (Mechanical Mitral Valve Prosthesis, etc.), the suggested prophylactic therapeutic range is an INR of 2.5-3.5. Blood BLOOD SPECIMEN / Unknown Venipuncture / Unknown 08/08/2021 3:07 AM CDT 08/08/2021 3:11 AM CDT Annemarie Ye MD LAB - COAGULATION OR DERABLES Performing Organization Address City/[facility] [place]/ZIP Co de Phone Number [facility] [address] [place] [address], [place] [phone] * (ABNORMAL) COMPREHENSIVE METABOLIC PANEL (08/08/2021 3:07 AM CDT) BUN 13 7 - 26 mg/dL 08/08/2021 3:39 AM [facility] Creatinine 1.22(H) 0.71 - 1.16 mg/dL 08/08/2021 3:39 AM [facility] Sodium 143 136 - 145 mmol/L 08/08/2021 3:39 AM [facility] Potassium 3.5 3.5 - 4.5 mmol/L 08/08/2021 3:39 AM [facility] Chloride 104 98 - 107 mmol/L 08/08/2021 3:39 AM [facility] CO2 22 22 - 29 mmol/L 08/08/2021 3:39 AM [facility] Glucose 151(H) 70 - 115 mg/dL 08/08/2021 3:39 AM [facility] Calcium 9.3 8.4 - 10.2 mg/dL 08/08/2021 3:39 AM [facility] Protein Total 6.9 6.0 - 8.3 g/dL 08/08/2021 3:39 AM [facility] Albumin 4.0 3.4 - 5.0 g/dL 08/08/2021 3:39 AM [facility] Bilirubin Total 0.4 0.2 - 1.2 mg/dL 08/08/2021 3:39 AM [facility] Alkaline Phosphatase 44 40 - 150 U/L 08/08/2021 3:39 AM [facility] ALT 24 5 - 55 U/L 08/08/2021 3:39 AM [facility] AST 20 5 - 34 U/L 08/08/2021 3:39 AM [facility] Anion Gap 21(H) 8 - 18 08/08/2021 3:39 AM [facility] BUN/Creatinine Ratio 11 7 - 23 08/08/2021 3:39 AM [facility] Osmolality Calculated 299 270 - 300 mOsm/kg 08/08/2021 3:39 AM [facility] Albumin/Globulin Ratio 1.4 1.1 - 2.3 08/08/2021 3:39 AM [facility] eGFR by CKD-EPI 70(L) >=90 mL/min/1.7 3 m2 08/08/2021 3:39 AM CDT [facility] Blood BLOOD SPECIMEN / Unknown Venipuncture / Unknown 08/08/2021 3:07 AM CDT 08/08/2021 3:11 AM CDT Annemarie Ye MD LAB - CHEMISTRY CECELIA LEONARD Performing Organization Address City/[facility] [place]/ZIP Co de Phone Number [facility] [address] [place] [address], [facility] [phone] * (ABNORMAL) ALCOHOL ETHYL BLOOD (08/08/2021 3:07 AM CDT) Ethanol (mg/dL) 56(H) <10 mg/dL 3:39 AM CDT [facility] Ethanol Calculated (g/dL) 0.056(H) <0.010 g/dL 08/08/2021 3:39 AM CDT [facility] Blood BLOOD SPECIMEN / Unknown Venipuncture / Unknown 08/08/2021 3:07 AM CDT 08/08/2021 3:11 AM CDT Narrative [facility] - 08/08/2021 3:39 AM CDT Ethanol Interp <10: None Detected. Depression of LABORATORY COORDINATOR: >100 mg/dl Potentially Critical: >250 mg/dl Potentially Fatal >400 mg/dl Ethanol in the patient's blood will contribute to the osmolar gap. Ethanol's contribution to the osmolar gap can be estimated by dividing the concentration of ethanol in mg/dL by 4.6. This test is for clinical use only and does not equal a SHAHNAZ for legal purposes. Annemarie Ye MD LAB - CHEMISTRY CECELIA LEONARD [facility] [address] [place] [address], [facility] [phone]
--- OUTSIDE RECORDS SUMMARY | 2024-04-10 12:04 | XMS_ITS | Clinical Summary ---
Author Organization [facility] D Address [address] [place] [address] Care Team Providers Care Waxer Name Role Phone Patrick Cano MD Primary Care Provider + [phone] Deondre Laws MD Unavailable Corrine PetersonT Unavailable [phone] Allergies Active Allergy Reactions Criticality Noted Date Comments Cephalexin Rash Medium 03/17/2017 Cdgwyaa-Tbs-Qnt Reductase Inhibitors Muscle pain,Joint pain Medium 07/22/2018 [...] 07/22/2018 Assessment & Plan (04/09/2021 10:31 AM OPTICAL DESIGNER): Normotensive on current therapy, continue Assessment & Plan (03/20/2020 10:20 AM OPTICAL DESIGNER): Suboptimal control, add HCTZ, will need BMP afterwards. Assessment & Plan (07/22/2018 10:01 AM CDT): Suboptimally controlled, add lisinopril 20. Other hyperlipidemia 07/22/2018 Assessment & Plan (04/09/2021 10:32 AM OPTICAL DESIGNER): Excellent control on current therapy Assessment & Plan (03/20/2020 10:20 AM OPTICAL DESIGNER): Modestly elevated, encouraged weight loss and rosuvastatin. Assessment & Plan (07/22/2018 10:01 AM CDT): Marked triglyceride elevation today, obtain follow-up fasting lipid panel Aftercare following surgery of the circulatory s ystem 03/17/2017 Status post mitral valve repair 03/17/2017 Assessment & Plan (04/09/2021 10:32 AM OPTICAL DESIGNER): Intact, follow expectantly Assessment & Plan (03/20/2020 10:20 AM OPTICAL DESIGNER): Clinically intact, no recent assessment, plan echo [...] 08/09/2019 Assessment & Plan (01/18/2017 11:29 AM OPTICAL DESIGNER): He has symptomatic severe mitral regurgitation due [...] forthcoming. Assessment & Plan (01/18/2017 11:29 AM OPTICAL DESIGNER): He has mild LV dysfunction due to severe mitral regurgitation, clinically euvolemic, on BJ-inhibitor therapy. Encounters Date Type Department Care Team Description 04/03/2024 Telephone [facility] Cardiology [address] [place] [address] [address] [address] Chas Hammond MD Scheduling Appointments 02/07/2024 Telephone [facility] [address] [place] [address] [address] [place] [address] Chas Hammond MD from Last 3 Months Immunizations Immunization Administration Dates Next Due Flucelvax Influenza Quad 10/20/2018 Hep A / Hep B 06/29/2011,11/26/2009,04/03/2008 Influenza, Quadrivalent, Spl it, Preservative Free, Intramuscular 11/18/2020,11/16/2019,12/22/2017 Influenza, Trivalent, Cell C ulture-based MDCK, Preservative Free, Antibiotic Free, Intramuscular 10/20/2018 Influenza, Trivalent, IM (MDV) 12/22/2013,2012,12/14/2011 MMR 08/14/2011,06/29/2011 Polio, Unspecified 06/29/2011 Tdap 08/08/2021,11/14/2007 ZOSTER Recombinant 02/19/2019,10/20/2018 Surgical History Surgery Date Site/Laterality Comments TONSILLECTOMY MITRAL VALVE REPLACEMENT 02/09/2017 Mitral valve repair via mini sternotomy MITRAL VALVE REPAIR Medical History Medical History Date Comments Hyperlipidemia Hypertension Pericarditis Family History Medical History Relation Name Comments Hyperlipidemia Father Relation Name Status Comments Father Social History Tobacco Use Types Packs/Day Years [...] week 08/12/2021 How often do you attend [facility] or gnosticism services? More than 4 times per year 08/12/2021 Do you belong to any clubs o r organizations such as mandaen groups, unions, fraternal or athletic groups, or [...] on file Legal Sex Male 9:40 AM OPTICAL DESIGNER Gender Identity Not on file Sexual Orientation Not on file Obstetrics History Last Filed Vital Signs Vital Sign Reading Time Taken Comments Blood Pressure 98/78 04/01/2023 11:21 AM OPTICAL DESIGNER Pulse 54 04/01/2023 11:21 AM OPTICAL DESIGNER Temperature 36.2 C (97.1 F) 08/13/2021 8:00 AM CDT Respiratory Rate 15 08/13/2021 12:00 PM CDT Oxygen Saturation 96% 04/01/2023 11:21 AM OPTICAL DESIGNER Inhaled Oxygen Concentration - - Weight 122.9 kg (271 lb) 04/01/2023 11:21 AM OPTICAL DESIGNER Height 193 cm (6' 4 ) 04/01/2023 11:21 AM OPTICAL DESIGNER Body Mass Index 32.99 04/01/2023 11:21 AM OPTICAL DESIGNER Plan of Treatment Health Maintenance Due Date Last Done Comments Colon Cancer Screening-Colonoscopy 1965 Depression Screening 1965 Hepatitis C Screening 1965 Prostate Cancer Screening-PSA 1965 Regular Well Visit/Exam 18-64 1983 Influenza Vaccine (#1) 2023 , 11/16/2019, 10/20/2018, Additional history exists DTaP/Tdap/Td Vaccine (3 - Td or Tdap) 08/09/2031 08/08/2021, 11/14/2007 Hepatitis B Screening Completed 06/29/2011 , 11/26/2009, 04/03/2008 Zoster Vaccine Completed 02/19/2019, 10/20/2018 Pneumococcal vaccine <65 Aged Out No longer eligible based on patient's age to complete this topic Insurance Advance Directives For more information, please contact: [phone] Documents on File Type Date Recorded Patient Milling Planer Operator Expl anation ADVANCE DIRECTIVE 08/01/2014 12:00 AM BINA R OF EPIC PRELUDE ANALYST FINANCIAL/MEDICAL * Full Code (Latest Code Status on File) Date Activated Date Inactivated Comments 08/11/2021 12:12 PM 08/13/2021 5:50 PM Care Teams Waxer Relationship Specialty Start Date End Date Patrick Cano MD PCP - General Family Medicine 01/07/17 Deondre Laws MD [id number] [address] Consulting Physician Neurosurgery 08/13/21 Corrine Peterson, PAXTONT [address] [address] Physical Therapist Physical Therapy 08/26/21
--- OUTSIDE RECORDS SUMMARY | 2024-04-10 12:04 | XMS_ITS | Referral Summary ---
Author Organization [facility] [employer] Address [address] [facility] [place] [address] Care Team Providers Care Seismic Prospecting Observer Name Role Phone Unavailable Primary Care Provider Unavailabl e Source Comments [facility],non-owned Affiliates and Associated Physician Practices is amultiple site organization consisting of ambulatory clinics and hospital sitesin [place], [place], [place] and [place]. This disclosure is being madepursuant to the Care Everywhere program and may not contain all information available regarding this patient. Last updated 17.[facility] [employer] Allergies Active Allergy Reactions Criticality Noted Date Comments Hmg-Coa-R Inhibitors Myalgias Medium 07/22/2018 Cephalexin Rash Medium 08/08/2021 Medications * Be aware that medications may not be up to date on this document. Alwaysverify current medications with the patient. Medication Sig Dispensed Refills Start Date End Date Status ezetimibe (ZETIA) 10 MG tablet Take 10 mg by mouth once daily 03/26/2021 Active hydroCHLOROthiazid e (HYDRODIURIL) 25 MG tablet Take 1 tablet by mouth once daily 09/17/2020 Active lisinopril (PRINIVIL; ZESTRIL) 20 MG tablet Take 1 tablet by mouth once daily 02/12/2021 Active metoprolol tartrate IR (LOPRESSOR) 100 MG tablet Take 2 tablets by mouth 2 times daily 02/13/2021 Active omeprazole (PRILOSEC) 20 MG capsule Take 20 mg by mouth once daily 11/07/2020 Active acetaminophen (TYLENOL) 325 MG tablet Take 2 (two) tablets by mouth every 6 hours Maximum allowable Acetaminophen amount = 4 Grams (4000 mg) / 24 hours. 08/09/2021 Active senna (SENOKOT EXTRA STRENGTH) 17.2 MG Take 17.2 mg by mouth at bedtime 08/09/2021 Active oxyCODONE, immediate release, (ROXICODONE) 5 MG tablet Take 1 (one) tablet by mouth every 4 hours as needed 12 tablet 08/09/2021 Active methocarbamol (ROBAXIN) 500 MG tablet Take 1 (one) tablet by mouth every 6 hours as needed for Muscle Spasms 30 tablet 08/09/2021 Active Active Problems Problem Noted Date Diagnosed Date Essential (primary) hypertension 08/08/2021 High blood triglycerides 08/08/2021 Neck pain 08/08/2021 Subdural hematoma 08/08/2021 Head injury 08/08/2021 Fall 08/08/2021 Scalp laceration 08/08/2021 Subarachnoid bleed 08/08/2021 Immunizations Name Administration Dates Next Due FLU VACCINE TRI IIV3 SPLIT IM (FLUVIRIN) 014,12/05/2012,12/14/2011 HEP A/HEP B 06/29/2011,11/26/2009,04/03/2008 INFLUENZA VACCINE, CELL CULT URE, QUADR. (FLUCELVAX QUADRIVALENT; 6MO+) (CCIIV4) 10/20/2018 INFLUENZA VACCINE, QUADR. (F LUZONE; FLULAVAL; FLUARIX; AFLURIA QUADRIVALENT; 6MO+), 0.5 ML (IIV4) 11/18/2020,11/16/2019 MMR VACCINE 08/14/2011,06/29/2011 POLIO,HISTORIC VACCINE 06/29/2011 TDAP (7yrs+) 08/08/2021 TDAP, HISTORIC VACCINE 11/14/2007 Zoster Hzv Vacc Recombinant Inj Im 02/19/2019, Social History Tobacco Use Types Packs/Day Years [...] Mass Index 29.03 08/08/2021 2:55 AM CDT Plan of Treatment Not on file Advance Directives * Full Code (Latest Code Status on File) Date Activated Date Inactivated Comments 08/08/2021 1:03 PM 08/09/2021 10:21 PM * Full Code Date Activated Date Inactivated Comments 08/08/2021 9:39 AM 08/08/2021 1:03 PM
--- OUTSIDE RECORDS SUMMARY | 2024-04-10 12:05 | XMS_ITS | Clinical Summary ---
Author Organization [facility] Address [address] [place] [address] Care Team Providers Care Line Assigner Name Role Phone Unavailable Primary Care Provider Unavailabl e Source Comments [facility],non-owned Affiliates and Associated Physician Practices is amultiple site organization consisting of ambulatory clinics and hospital sitesin [place], [place], [place] and [place]. This disclosure is being madepursuant to the Care Everywhere program and may not contain all information available regarding this patient. Last updated 17.[facility] Allergies Active Allergy Reactions Criticality Noted Date [...] 08/08/2021 2:55 AM CDT Plan of Treatment Health Maintenance Due Date Last Done Comments COLOGUARD (AGES 45-75) - COLON CA SCREENING 1965 COLON MONITORING 1965 COLONOSCOPY - COLON CA SCREENING 1965 CT COLONOGRAPHY - COLON CA SCREENING 1965 Colorectal Cancer Screening 1965 FIT - COLON CA SCREENING 1965 FLEX SIG - COLON CA SCREENING 1965 LIPID TESTING 1965 HIV SCREENING 1980 HEPATITIS C SCREENING 03/01/1983 PNEUMOCOCCAL VACCINE 50+ (1 of 1 - PCV) 2015 COVID-19 VACCINE (1 - 2023- season) 2023 INFLUENZA VACCINE (#1) 2023 , 11/16/2019, 10/20/2018, Additional history exists DEPRESSION SCREENING 02/23/2024 DTAP/TDAP/TD VACCINES (3 - Td or Tdap) 08/09/2031 08/08/2021, 11/14/2007 HEPATITIS B VACCINE Completed 06/29/2011, 11/26/2009, 04/03/2008 ZOSTER VACCINE Completed 02/19/2019, 10/20/2018 HIB VACCINE Aged Out No longer eligi ble based on patient's age to complete this topic HPV VACCINE Aged Out No longer eligi ble based on patient's age to complete this topic MENINGOCOCCAL (Group B) VACCINE Aged Out No longer eligible based on patient's age to complete this topic MENINGOCOCCAL VACCINE Aged Out No erasmo haily eligible based on patient's age to complete this topic PNEUMOCOCCAL VACCINE Aged Out No long er eligible based on patient's age to complete this topic Advance Directives * Full Code (Latest Code Status on File) Date Activated Date Inactivated Comments 08/08/2021 1:03 PM 08/09/2021 10:21 PM * Full Code Date Activated Date Inactivated Comments 08/08/2021 9:39 AM 08/08/2021 1:03 PM
--- OUTSIDE RECORDS SUMMARY | 2024-04-10 12:05 | XMS_ITS | Clinical Summary ---
[facility] Address [address] [facility] [place] [address] Care Team Providers Care Area Director Of Home Health Sales Name Role Phone Unavailable Primary Care Provider Unavailabl e Allergies Active Allergy Reactions Criticality Noted Date Comments Cephalexin Rash Medium 03/17/2017 Lpaivqh-Dqq-Taz Reductase Inhibitors Muscle Pain Medium 07/22/2018 Medications amLODIPine (NORVASC) 5 mg tablet Take 5 mg by mouth daily. 08/14/2021 Active ezetimibe (ZETIA) 10 mg tablet Take 10 mg by mouth daily. 03/26/2021 Active gabapentin (NEURONTIN) 300 mg capsule Take 300 mg by mouth. 05/12/2022 Active hydroCHLOROthia zide 25 mg tablet Take 1 Tablet by mouth daily. 09/17/2020 Active melatonin 5 mg Tablet Take 5 mg by mouth. Active methocarbamoL (ROBAXIN) 500 mg tablet Take 500 mg by mouth. 08/09/2021 Active metoprolol tartrate (LOPRESSOR) 100 mg tablet TAKE 2 TABLETS BY MOUTH TWICE A DAY 02/13/2021 Active omeprazole (PriLOSEC) 20 mg Capsule, Delayed Release(E.C.) Take by mouth daily. 11/07/2020 Active Active Problems Problem Noted Date Diagnosed Date High blood triglycerides 08/08/2021 Scalp laceration 08/08/2021 Primary hypertension 07/22/2018 Overview (08/16/2023): Last Assessment & Plan: Normotensive on current therapy, continue Chronic tonsillitis 12/19/2012 Encounters Date Type Department Care Team Description 03/16/2024 External Device Data [facility] ABSTRACTION Provider, Abstract 03/07/2024 External Device Data [facility] ABSTRACTION Provider, Abstract 02/29/2024 External Device Data [facility] Provider, Abstract 02/22/2024 External Device Data [facility] ABSTRACTION Provider, Abstract from Last 3 Months Social History Tobacco Use Types Packs/Day Years Used Date Smoking Tobacco: Never Smokeless Tobacco: Never Tobacco Cessation:Counseling Given: Not Answered Sex and Gender Information Value Date Recorded Sex Assigned at Not on file Legal Sex Male 5:07 PM CDT Gender Identity Not on file Sexual Orientation Not on file Last Filed Vital Signs Vital Sign Reading Time Taken Comments Blood Pressure 103/70 08/16/2023 3:17 PM CDT Pulse 56 08/16/2023 3:17 PM CDT Temperature 36.2 C (97.1 F) 08/16/2023 3:17 PM CDT Respiratory Rate 18 08/16/2023 3:17 PM CDT Oxygen Saturation 95% 08/16/2023 3:17 PM CDT Inhaled Oxygen Concentration - - Weight 140.6 kg (310 lb) 08/16/2023 3:17 PM CDT Height 193 cm (6' 4 ) 08/16/2023 3:17 PM CDT Body Mass Index 37.73 08/16/2023 3:17 PM CDT Plan of Treatment Health Maintenance Due Date Last Done Comments Pre-Diabetes and Diabetes Screening 1965 COLORECTAL SCREENING 2010 Colorectal Cancer Screening 2010 FIT-DNA Q 3 years 2010 FIT/FOBT Q 1 year 2010 Flex Sig/CT Colonography Q 5 years 2010 INFLUENZA VACCINE (#1) 2023 2, 11/18/2020, 11/16/2019, Additional history exists DTAP/TDAP/TD VACCINES (3 - Td or Tdap) 08/09/2031 08/08/2021, 11/14/2007 HEPATITIS B VACCINES Completed 06/29/2011, 11/26/2009, 04/03/2008 ZOSTER VACCINE Completed 02/19/2019, 10/20/2018 PNEUMOCOCCAL VACCINE 0-64 YEARS Aged Out No longer eligible based on patient's age to complete this topic Insurance OUT OF STATE
== END 2024-04-10 11:17 | disposition home or self-care (01) ==
PROVIDERS: Emergency Medicine; Emergency Provider Physician Assistant; PCP Family Medicine
DX: J10.1 Influenza due to other identified influenza virus with other respiratory manifestations (principal); J18.9 Pneumonia, unspecified organism; D69.6 Thrombocytopenia, unspecified; Z20.822 Contact with and (suspected) exposure to COVID-19; I34.0 Nonrheumatic mitral (valve) insufficiency; I10 Essential (primary) hypertension; Z86.16 Personal history of COVID-19; Z86.0101 Personal history of adenomatous and serrated colon polyps; Z87.891 Personal history of nicotine dependence; Z79.899 Other long term (current) drug therapy
CPT/HCPCS: 36415; 71046; 80053; 83735; 85025; 85055; 87637; 99283; A9270